=== PATIENT | male | born 1975 | race Hispanic/Latino ===

== ENCOUNTER 2017-08-11 02:11 | Emergency (ER) | payer OTHER ==
[2017-08-11 02:57] LABS: BASOPHILS % (AUTO) 0.2 % (0.0-5.0); EOSINOPHILS % (AUTO) 1.2 % (0.0-8.0); HEMATOCRIT 42.7 % (42-54); LYMPHOCYTES % (AUTO) 29.3 % (21.0-51.0); MEAN CORPUSCULAR HEMOGLOBIN 32.9 pg (27.0-33.0); MEAN CORPUSCULAR HGB CONC 34.7 g/dL (32.0-36.0); MEAN CORPUSCULAR VOLUME 94.5 fL (79-99); MONOCYTES % (AUTO) 3.4 % (3.0-13.0); NEUTROPHILS % (AUTO) 65.9 % (40.0-77.0); PLATELET COUNT (AUTO) 260 K/uL (130-400); RED BLOOD CELL COUNT(AUTO) 4.51 MIL/uL (4.50-6.20); RED CELL DISTRIBUTION WIDTH 13.4 % (11.0-15.5); WHITE BLOOD COUNT (AUTO) 6.2 K/uL (4.8-10.8)
[2017-08-11 03:12] LABS: CARBON DIOXIDE 24 mmol/L (21-32); CHLORIDE 100 mmol/L (101-111); CREATININE 0.7 mg/dL (0.5-1.5); GLOMERULAR FILTR. RATE CALC 131 mL/min (>60); GLUCOSE,RANDOM 123 mg/dL (70-105); POTASSIUM 3.8 mmol/L (3.5-5.1); SODIUM SERUM 138 mmol/L (136-145); UREA NITROGEN, BLOOD 9 mg/dL (7-18)
[2017-08-11 03:26] LABS: CREATINE KINASE MB < 0.5 ng/mL (0.5-3.6); CREATINE KINASE, TOTAL 81 U/L (21-232)
== END 2017-08-11 07:04 | disposition home or self-care (01) ==
LOC: EDH 02:11
DX: R07.89 Other chest pain (principal); E78.5 Hyperlipidemia, unspecified; Z72.0 Tobacco use
CPT/HCPCS: 36415; 80048; 82550; 82553; 84484; 85025; 93005

== ENCOUNTER 2017-12-07 09:59 | Inpatient (IN) | payer OTHER ==
[~2017-12-07] VITALS: Ht 175.3 cm; Wt 75.1 kg
[2017-12-07 10:22] LABS: BASOPHILS % (AUTO) 0.6 % (0.0-5.0); EOSINOPHILS % (AUTO) 3.5 % (0.0-8.0); HEMATOCRIT 41.9 % (42-54); LYMPHOCYTES % (AUTO) 31.7 % (21.0-51.0); MEAN CORPUSCULAR HEMOGLOBIN 33.1 pg (27.0-33.0); MEAN CORPUSCULAR HGB CONC 35.2 g/dL (32.0-36.0); MEAN CORPUSCULAR VOLUME 93.9 fL (79-99); MONOCYTES % (AUTO) 8.5 % (3.0-13.0); NEUTROPHILS % (AUTO) 55.7 % (40.0-77.0); PLATELET COUNT (AUTO) 269 K/uL (130-400); RED BLOOD CELL COUNT(AUTO) 4.46 MIL/uL (4.50-6.20); RED CELL DISTRIBUTION WIDTH 12.8 % (11.0-15.5); WHITE BLOOD COUNT (AUTO) 7.4 K/uL (4.8-10.8)
[2017-12-07 10:33] LABS: CREATININE 0.9 mg/dL (0.5-1.5); POTASSIUM 4.2 mmol/L (3.5-5.1)
[2017-12-07 10:36] LABS: INR 0.94 (0.85-1.15); PARTIAL THROMBOPLASTIN TIME 29.2 SEC (26.3-35.5); PROTHROMBIN TIME 9.9 SEC (9.6-11.6)
[2017-12-07 10:41] LABS: BILIRUBIN,TOTAL 0.5 mg/dL (0.2-1.0); TOTAL PROTEIN, SERUM 7.8 g/dL (6.0-8.3)
[2017-12-07] MEDS ORDERED: NITROGLYCERIN 1GM/1 INCH PACKET TD ONE (10:43)
[2017-12-07] MEDS ORDERED: NITROGLYCERIN 0.4 MG SL TAB SL PRN (12:30)
[2017-12-07] MEDS ORDERED: GUAIFENESIN-DM 200/20 MG 10 ML PO PRN (12:30)
[2017-12-07] MEDS ORDERED: ACETAMINOPHEN 325 MG TAB PO PRN ×2 (12:30)
[2017-12-07] MEDS ORDERED: ONDANSETRON HCL 4 MG/2 ML VIAL IV PRN (12:30)
[2017-12-07] MEDS ORDERED: MORPHINE SULFATE 2 MG/ML 1ML SYG IV PRN (12:30)
[2017-12-07] MEDS ORDERED: HYDRALAZINE HCL 20 MG/ML VIAL IV PRN (12:30)
[2017-12-07] MEDS ORDERED: LACTULOSE 20 GM/30 ML UDCUP PO PRN (12:30)
[2017-12-07] MEDS ORDERED: MORPHINE SULFATE 4 MG/1ML SYG IV PRN (12:30)
[2017-12-07] MEDS: NITROGLYCERIN 1GM/1 INCH PACKET TD SCH ×2 (12:30→21:30)
[2017-12-07 14:18] LABS: APPEARANCE,URINE Clear (CLEAR); BILIRUBIN,URINE Negative (NEGATIVE); COLOR,URINE Yellow (YELLOW); GLUCOSE, URINE (UA) Negative (NEGATIVE); KETONES,URINE Negative (NEGATIVE); LEUKOCYTE ESTERASE ,URINE Negative (NEGATIVE); NITRATE,URINE Negative (NEGATIVE); OCCULT BLOOD,URINE Negative (NEGATIVE); PH,URINE 6.5 (5.0-8.0); PROTEIN,URINE Negative (NEGATIVE); UROBILINOGEN,URINE 0.2 mg/dL (0.2-1.0)
[2017-12-07 14:26] LABS: AMPHET/METH SCREEN,URINE NEGATIVE (NEGATIVE); BARBITURATE SCREEN, URINE NEGATIVE (NEGATIVE); BENZODIAZEPINES SCREEN,URINE NEGATIVE (NEGATIVE); CANNABINOID SCREEN,URINE NEGATIVE (NEGATIVE); COCAINE SCREEN,URINE NEGATIVE (NEGATIVE); OPIATE SCREEN,URINE NEGATIVE (NEGATIVE); PHENCYCLIDINE SCREEN,URINE NEGATIVE (NEGATIVE)
[2017-12-07] MEDS ORDERED: HEPARIN 25000 UNITS/250 ML D5W 250 ML IV PRN (14:52)
[2017-12-07] MEDS ORDERED: HEPARIN 25000 UNITS/250 ML D5W 250 ML IV ONE (15:53)
[2017-12-07 18:24] LABS: CREATINE KINASE MB 1.2 ng/mL (0.5-3.6); CREATINE KINASE, TOTAL 307 U/L (21-232); MYOGLOBIN 34 ng/mL (10-92); TROPONIN I < 0.04 ng/mL (0.00-0.06)
[2017-12-07 18:42] VITALS: BP 109/61
[2017-12-07 20:13] VITALS: BP 109/61
[2017-12-07] MEDS: FAMOTIDINE 20MG TAB 20 MG TAB PO SCH (21:28)
[2017-12-07] MEDS: METOPROLOL TARTRATE 25 MG TAB PO SCH (21:28)
[2017-12-07 23:36] VITALS: BP 104/58
[2017-12-08] VITALS (12 sets, daily range): BP systolic 94–138; BP diastolic 53–110
[2017-12-08] MEDS ORDERED: HEPARIN SODIUM 5000UNIT/ML 1ML VIAL ONE ×2 (00:22→05:50)
[2017-12-08] MEDS: NITROGLYCERIN 1GM/1 INCH PACKET TD SCH ×3 (04:30→16:38)
[2017-12-08 04:52] LABS: CREATININE 0.9 mg/dL (0.5-1.5); POTASSIUM 4.1 mmol/L (3.5-5.1)
[2017-12-08] MEDS: METOPROLOL TARTRATE 25 MG TAB PO SCH ×2 (09:00→20:49)
[2017-12-08] MEDS: FAMOTIDINE 20MG TAB 20 MG TAB PO SCH ×2 (09:00→20:49)
[2017-12-08] MEDS ORDERED: ASPIRIN 325 MG TABLET PO SCH (09:00)
[2017-12-08] MEDS ORDERED: ENOXAPARIN SODIUM 40 MG/0.4 ML SYRINGE SQ SCH (09:00)
[2017-12-08] MEDS ORDERED: LIDOCAINE HCL 1% 20 ML VIAL ONE (12:22)
[2017-12-08] MEDS ORDERED: IOPAMIDOL-370 100 ML VIAL IV ONE ×2 (12:23→13:32)
[2017-12-08] MEDS ORDERED: HEPARIN SODIUM 1000UNIT/ML 10ML VIAL ONE (12:23)
[2017-12-08] MEDS ORDERED: ISOVUE-370 50ML VIAL IV ONE (12:23)
[2017-12-08] MEDS ORDERED: ASPIRIN 325MG EC TAB 325 MG TABLET.DR PO ONE (13:13)
[2017-12-08] MEDS ORDERED: CLOPIDOGREL BISULFATE 300 MG TAB ONE (13:13)
[2017-12-08] MEDS ORDERED: ONDANSETRON HCL 4 MG/2 ML VIAL ONE (13:31)
[2017-12-08] MEDS ORDERED: ATROPINE SULFATE 0.1 MG/ML 10 ML SYG IVP ONE (13:36)
[2017-12-08] MEDS ORDERED: DOPAMINE HCL 400 MG/D5%-WATER 0 ML IV ONE (13:36)
[2017-12-08] MEDS ORDERED: NITROGLYCERIN 5 MG/ML 10 ML VIAL IV ONE (13:42)
[2017-12-08] MEDS ORDERED: ACETAMINOPHEN-CODEINE 300/30MG TAB PO PRN (14:30)
[2017-12-08] MEDS ORDERED: MORPHINE SULFATE 2 MG/ML 1ML SYG IVP SCH (14:30)
[2017-12-08] MEDS ORDERED: ONDANSETRON HCL MDV 20ML 2 MG/ML VIAL IVP SCH (14:30)
[2017-12-08] MEDS ORDERED: TEMAZEPAM 30 MG CAP PO PRN (14:30)
[2017-12-08] MEDS ORDERED: ONDANSETRON HCL MDV 20ML 2 MG/ML VIAL IVP PRN (14:30)
[2017-12-08] MEDS: ACETAMINOPHEN-CODEINE 300/30MG TAB PO PRN ×2 (15:03→20:49)
[2017-12-08 16:15] LABS: INR 0.99 (0.85-1.15); PARTIAL THROMBOPLASTIN TIME 65.1 SEC (26.3-35.5); PROTHROMBIN TIME 10.4 SEC (9.6-11.6)
[2017-12-08 17:26] LABS: INR 0.97 (0.85-1.15); PARTIAL THROMBOPLASTIN TIME 37.8 SEC (26.3-35.5); PROTHROMBIN TIME 10.2 SEC (9.6-11.6)
[2017-12-08] MEDS ORDERED: MORPHINE SULFATE 4 MG/1ML SYG ONE (17:33)
[2017-12-08] MEDS ORDERED: ATORVASTATIN CALCIUM 20 MG TABLET PO SCH (21:00)
[2017-12-09] MEDS: NITROGLYCERIN 1GM/1 INCH PACKET TD SCH ×3 (00:20→16:59)
[2017-12-09 04:02] VITALS: BP 96/64
[2017-12-09 05:24] LABS: HEMATOCRIT 43.7 % (42-54); MEAN CORPUSCULAR HEMOGLOBIN 33.3 pg (27.0-33.0); MEAN CORPUSCULAR HGB CONC 35.3 g/dL (32.0-36.0); MEAN CORPUSCULAR VOLUME 94.3 fL (79-99); PLATELET COUNT (AUTO) 282 K/uL (130-400); RED BLOOD CELL COUNT(AUTO) 4.64 MIL/uL (4.50-6.20); RED CELL DISTRIBUTION WIDTH 12.5 % (11.0-15.5); WHITE BLOOD COUNT (AUTO) 9.1 K/uL (4.8-10.8)
[2017-12-09 05:36] LABS: CREATININE 0.9 mg/dL (0.5-1.5); POTASSIUM 4.3 mmol/L (3.5-5.1)
[2017-12-09] MEDS: FAMOTIDINE 20MG TAB 20 MG TAB PO SCH (07:43)
[2017-12-09] MEDS: METOPROLOL TARTRATE 25 MG TAB PO SCH (07:43)
[2017-12-09] MEDS: ACETAMINOPHEN-CODEINE 300/30MG TAB PO PRN ×2 (07:46→16:14)
[2017-12-09 07:51] VITALS: BP 94/64
[2017-12-09] MEDS ORDERED: ASPIRIN 81MG TAB.CHEW PO SCH (09:00)
[2017-12-09] MEDS ORDERED: PANTOPRAZOLE SODIUM 40 MG TABLET.DR PO SCH (09:00)
[2017-12-09] MEDS ORDERED: CLOPIDOGREL BISULFATE 75 MG TAB PO SCH (09:00)
[2017-12-09] MEDS ORDERED: METO25 PO (09:07)
[2017-12-09] MEDS ORDERED: ATOR20TA65 PO (09:07)
[2017-12-09] MEDS ORDERED: CLOP75TA14 PO ×2 (09:07→12:26)
[2017-12-09] MEDS ORDERED: ASPI-1005 PO (09:07)
[2017-12-09] MEDS ORDERED: Nitroglycerin 0.4MG Sl Tab SL (09:13)
[2017-12-09 11:11] VITALS: BP 94/57
[2017-12-09] MEDS ORDERED: ATOR10 PO (12:26)
[2017-12-09] MEDS ORDERED: METO25TA6 PO (12:26)
[2017-12-09] MEDS ORDERED: AEC81 PO (12:26)
[2017-12-09 16:05] VITALS: BP 118/55
== END 2017-12-09 18:40 | disposition home or self-care (01) | DRG 247 ==
LOC: EDH 09:59 → OBSVTOIN 10:55 → EEVIPCON 10:55 → EDHIP 10:55 → 2AH 18:18
PROVIDERS: ADMIT Internal Medicine; ATTEND Internal Medicine
PROC: 4A023N7 Measurement of Cardiac Sampling and Pressure, Left Heart, Percutaneous Approach (ICD-10-PCS; principal; 2017-12-08)
PROC: 027236Z Dilation of Coronary Artery, Three Arteries with Three Drug-eluting Intraluminal Devices, Percutaneous Approach (ICD-10-PCS; 2017-12-08)
PROC: B2111ZZ Fluoroscopy of Multiple Coronary Arteries using Low Osmolar Contrast (ICD-10-PCS; 2017-12-08)
PROC: B2131ZZ Fluoroscopy of Multiple Coronary Artery Bypass Grafts using Low Osmolar Contrast (ICD-10-PCS; 2017-12-08)
DX: I25.810 Atherosclerosis of coronary artery bypass graft(s) without angina pectoris (principal); I25.110 Atherosclerotic heart disease of native coronary artery with unstable angina pectoris; E78.5 Hyperlipidemia, unspecified; I10 Essential (primary) hypertension; I25.5 Ischemic cardiomyopathy; I25.2 Old myocardial infarction; Z91.19 Patient's noncompliance with other medical treatment and regimen; Z95.5 Presence of coronary angioplasty implant and graft
CPT/HCPCS: 36415; 71045; 80048; 80053; 80061; 80305; 81003; 82550; 82553; 83874; 84484; 85025; 85027; 85347; 85610; 85730; 93005; 93459; C1725; C1769; C1887; C1894; C9600; C9601; J0461; J1265; J1644; J2270; J2405; J3490; Q9967

== ENCOUNTER 2021-02-04 14:35 | Emergency (ER) | payer OTHER ==
[~2021-02-04] VITALS: Ht 175.3 cm; Wt 79.4 kg
[~2021-02-04 14:35] MED LIST: AEC81 PO; ASPI-1005 PO; ATOR10 PO; ATOR20TA65 PO; CLOP75TA14 PO; METO25 PO; METO25TA6 PO; Nitroglycerin 0.4MG Sl Tab SL
[2021-02-04 14:36] VITALS: BP 126/80
== END 2021-02-04 16:04 ==
LOC: EDH 14:35
DX: M79.642 Pain in left hand (principal); Z79.82 Long term (current) use of aspirin; Z95.1 Presence of aortocoronary bypass graft; Z95.5 Presence of coronary angioplasty implant and graft; Z79.899 Other long term (current) drug therapy
CPT/HCPCS: 73130

== ENCOUNTER 2021-07-11 17:12 | Emergency (ER) | payer OTHER ==
[~2021-07-11] VITALS: Ht 175.3 cm; Wt 83.9 kg
[2021-07-11 17:37] LABS: BASOPHILS % (AUTO) 0.4 % (0.0-5.0); EOSINOPHILS % (AUTO) 4.4 % (0.0-8.0); HEMATOCRIT 41.7 % (42-54); LYMPHOCYTES % (AUTO) 33.3 % (21.0-51.0); MEAN CORPUSCULAR HEMOGLOBIN 30.1 pg (27.0-33.0); MEAN CORPUSCULAR HGB CONC 33.6 g/dL (32.0-36.0); MEAN CORPUSCULAR VOLUME 89.7 fL (79-99); MONOCYTES % (AUTO) 10.6 % (3.0-13.0); NEUTROPHILS % (AUTO) 51.1 % (40.0-77.0); PLATELET COUNT (AUTO) 270 K/uL (130-400); RED BLOOD CELL COUNT(AUTO) 4.65 MIL/uL (4.50-6.20); RED CELL DISTRIBUTION WIDTH 13.2 % (11.0-15.5); WHITE BLOOD COUNT (AUTO) 5.6 K/uL (4.8-10.8)
[2021-07-11 17:46] LABS: APPEARANCE,URINE Clear (CLEAR); BILIRUBIN,URINE Negative (NEGATIVE); COLOR,URINE Yellow (YELLOW); GLUCOSE, URINE (UA) Negative (NEGATIVE); KETONES,URINE Negative (NEGATIVE); LEUKOCYTE ESTERASE ,URINE Negative (NEGATIVE); NITRATE,URINE Negative (NEGATIVE); OCCULT BLOOD,URINE Negative (NEGATIVE); PH,URINE 5.5 (5.0-8.0); PROTEIN,URINE Negative (NEGATIVE); UROBILINOGEN,URINE 0.2 mg/dL (0.2-1.0)
[2021-07-11 17:48] LABS: CREATININE 0.9 mg/dL (0.5-1.5); POTASSIUM 3.9 mmol/L (3.5-5.1)
[2021-07-11 17:50] LABS: INR 0.96 (0.85-1.15); PROTHROMBIN TIME 10.5 SEC (9.6-11.6)
[2021-07-11 17:51] LABS: PARTIAL THROMBOPLASTIN TIME 30.8 SEC (26.3-35.5)
[2021-07-11 17:52] LABS: ALBUMIN 4.1 g/dL (3.5-5.0); BILIRUBIN,TOTAL 0.7 mg/dL (0.2-1.0); TOTAL PROTEIN, SERUM 7.8 g/dL (6.0-8.3)
[2021-07-11 18:11] LABS: B-TYPE NATRIURETIC PEPTIDE 18 pg/mL (0-100)
[2021-07-11] MEDS ORDERED: ORPHENADRINE CITRATE 30 MG/ML ML IV ONE (21:00)
[2021-07-11] MEDS ORDERED: KETOROLAC 30MG VIAL (30MG/ML) IV ONE (21:00)
[2021-07-11 21:08] VITALS: BP 121/87
== END 2021-07-11 21:18 | disposition home or self-care (01) ==
LOC: EDH 17:12
DX: R07.89 Other chest pain (principal); M79.10 Myalgia, unspecified site; R20.0 Anesthesia of skin; I10 Essential (primary) hypertension; I25.10 Atherosclerotic heart disease of native coronary artery without angina pectoris; Z79.82 Long term (current) use of aspirin; Z79.899 Other long term (current) drug therapy; Z95.1 Presence of aortocoronary bypass graft; Z95.5 Presence of coronary angioplasty implant and graft
CPT/HCPCS: 36415; 71045; 80053; 81003; 82550; 83880; 84484; 85025; 85610; 85730; 93005; 96374; 96375; 99285; J1885; J2360

== ENCOUNTER 2021-08-25 14:02 | Emergency (ER) | payer OTHER ==
[~2021-08-25] VITALS: Ht 175.3 cm; Wt 88.5 kg
[2021-08-25 14:55] LABS: BASOPHILS % (AUTO) 0.3 % (0.0-5.0); EOSINOPHILS % (AUTO) 2.8 % (0.0-8.0); HEMATOCRIT 42.3 % (42-54); LYMPHOCYTES % (AUTO) 28.3 % (21.0-51.0); MEAN CORPUSCULAR HEMOGLOBIN 30.4 pg (27.0-33.0); MEAN CORPUSCULAR HGB CONC 33.8 g/dL (32.0-36.0); MEAN CORPUSCULAR VOLUME 89.8 fL (79-99); MONOCYTES % (AUTO) 7.2 % (3.0-13.0); NEUTROPHILS % (AUTO) 61.1 % (40.0-77.0); PLATELET COUNT (AUTO) 253 K/uL (130-400); RED BLOOD CELL COUNT(AUTO) 4.71 MIL/uL (4.50-6.20); RED CELL DISTRIBUTION WIDTH 13.2 % (11.0-15.5); WHITE BLOOD COUNT (AUTO) 6.1 K/uL (4.8-10.8)
[2021-08-25 15:04] LABS: APPEARANCE,URINE Clear (CLEAR); BILIRUBIN,URINE Negative (NEGATIVE); COLOR,URINE Yellow (YELLOW); GLUCOSE, URINE (UA) Negative (NEGATIVE); KETONES,URINE Negative (NEGATIVE); LEUKOCYTE ESTERASE ,URINE Trace (NEGATIVE); NITRATE,URINE Negative (NEGATIVE); OCCULT BLOOD,URINE Negative (NEGATIVE); PROTEIN,URINE Negative (NEGATIVE)
[2021-08-25 15:11] LABS: BILIRUBIN,TOTAL 0.8 mg/dL (0.2-1.0); TOTAL PROTEIN, SERUM 7.5 g/dL (6.0-8.3)
[2021-08-25 15:14] LABS: PROTHROMBIN TIME 10.9 SEC (9.6-11.6)
[2021-08-25 15:15] LABS: BACTERIA,URINE None Seen /HPF (None Seen); RBC,URINE 0-1 /HPF (0-1); SQUAMOUS EPITHELIAL CELL,UR 0-2 /HPF (0-2); WBC,URINE 0-1 /HPF (0-1)
[2021-08-25 15:15] LABS: PARTIAL THROMBOPLASTIN TIME 31.4 SEC (26.3-35.5)
[2021-08-25 15:19] LABS: B-TYPE NATRIURETIC PEPTIDE 27 pg/mL (0-100)
[2021-08-25 17:11] VITALS: BP 111/69
== END 2021-08-25 17:40 | disposition home or self-care (01) ==
LOC: EDH 14:02 → EEVIPCON 14:02 → EDH 17:40
DX: R07.89 Other chest pain (principal); I10 Essential (primary) hypertension; I25.10 Atherosclerotic heart disease of native coronary artery without angina pectoris; F17.200 Nicotine dependence, unspecified, uncomplicated; Z79.82 Long term (current) use of aspirin; Z79.899 Other long term (current) drug therapy; Z95.1 Presence of aortocoronary bypass graft; Z95.5 Presence of coronary angioplasty implant and graft
CPT/HCPCS: 36415; 71045; 80053; 81001; 82550; 83880; 84484; 85025; 85610; 85730; 93005

== ENCOUNTER 2025-04-30 20:27 | Inpatient (IN) | payer OTHER ==
[~2025-04-30] VITALS: Ht 175.3 cm; Wt 78.6 kg
[~2025-04-30 20:27] MED LIST changes: +CLOP-31 PO; -CLOP75TA14 PO
--- NOTE | 2025-04-30 21:10 | EKG ---
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
[2025-04-30 21:37] LABS: IMMATURE GRANULOCYTE ABSOLUTE 0.02 K/uL (0-1); NUCLEATED RED BLOOD CELLS 0.0 % (0.0-0.19); PLATELET COUNT (AUTO) 291 K/uL (130-400); RED BLOOD CELL COUNT(AUTO) 4.62 MIL/uL (4.50-6.20); RED CELL DISTRIBUTION WIDTH 13.9 % (11.0-15.5); WHITE BLOOD COUNT (AUTO) 8.0 K/uL (4.8-10.8)
[2025-04-30 21:51] LABS: CREATINE KINASE, TOTAL 88.0 U/L (21-232); CREATININE 0.9 mg/dL (0.5-1.3); GLOMERULAR FILTR. RATE CALC 103.0 mL/min (>90); GLUCOSE,RANDOM 101.0 mg/dL (70-105); SODIUM SERUM 137.0 mmol/L (136-145); UREA NITROGEN, BLOOD 15.0 mg/dL (7-18)
--- NOTE | 2025-04-30 21:59 | HMCIMG ---
EXAM: XR Chest, 1 View. CLINICAL HISTORY: Shortness of breath. COMPARISON: 12/07/2017. FINDINGS: LUNGS: No acute cardiopulmonary process. The lungs are clear. PLEURAL SPACES: No pleural effusion or pneumothorax. HEART: The heart size is normal. BONES: No acute osseous abnormality. IMPRESSION: 1. No acute cardiopulmonary process. Similar to the prior XR Chest dated 12/07/2017. /[place]
[2025-04-30] MEDS: ASPIRIN 325MG TAB PO ONE (22:11)
--- NOTE | 2025-04-30 22:14 | ERN ---
ED Note History of Present Illness Stated Complaint: C/O TIGHTNESS TO CHEST W/SOB Chief Complaint: Shortness of Breath Time Seen by MD: 20:31 Dictation: This is a 50-year-old male skilled nursing inmate was brought by the correctional facility officers for evaluation of shortness of breath and chest tightness. He stated that this has been going on for the past few days and it was worse today and the residential staff tried to do an EKG patient informed them that in the past even with a normal EKG he ended up having multiple blockages. He denied any diaphoresis nausea vomitings. No reproducibility. No trauma. Temperature 98.2 pulse 26 respirations 20 blood pressure 130/76 with a pulse oximetry 99% on room air Patient has coronary artery disease for over 20 years and he underwent a c oronary artery bypass surgery in his early 30s. But 5 or 7 years ago he had left heart catheterization and multiple stents placed. He is also hypertensive. Please note that his cardiac stent placements and repeat left heart catheterization were all at [facility] and I do not have any of those records for review at this time Allergies: Coded Allergies: No Known Allergies (Unverified Allergy, Unknown, 06/03/17) Home Meds Active Scripts [Nitroglycerin 0.4MG Sl Tab] 0.4 MG TAB.SUBL No Conflict Check, 0.4 MG SL q5min prn PRN for CHEST PAIN, #15 0 Refills Prov:TONNY DAVID MD 12/09/17 Metoprolol Tartrate (Lopressor) 25 Mg Tab, 25 MG PO BID, #60 TAB Prov:TONNY DAVID MD 12/09/17 Clopidogrel Bisulfate (Plavix) 75 Mg Tablet, 75 MG PO DAILY, #60 TAB Prov:TONNY DAVID MD 12/09/17 Atorvastatin Calcium (Atorvastatin Calcium) 20 Mg Tablet, 20 MG PO HS, #60 TAB Prov:TONNY DAVID MD 12/09/17 Aspirin (ASPIRIN 81MG CHEW TAB) 81 Mg Tab.chew, 81 MG PO DAILY, #60 TAB.CHEW Prov:TONNY DAVID MD 12/09/17 Reported Medications Atorvastatin Calcium (LIPITOR) 20 Mg Tab, 20 MG PO HS, TAB 12/09/17 Clopidogrel Bisulfate (Plavix) 75 Mg Tablet, 75 MG PO DAILY, TAB 12/09/17 Metoprolol Tartrate (Metoprolol Tartrate) 25 Mg Tablet, 25 MG PO DAILY, TAB 12/09/17 Aspirin (ASPIRIN 81 MG ECTAB) 81 Mg Ectab, 81 MG PO DAILY, TAB.EC 12/09/17 Past Medical History Past Medical History: Hypertension Additional Past Medical Hx: DOES NOT KNOW IF HE HAS HTN, DOES NOT TAKE RX MEDS Surgical History: Other Surgical History Other: TRIPLE BYPASS (2010); CARDIAC STENTS Social History: Smokers, Drugs RN Note Reviewed/Agreed w/PFSH: Yes Review of System Dictation Constitutional: Negative for fever,chills, and weight loss Eyes: Negative for injury, pain,redness, and discharge ENT: Negative for injury,pain or swelling Cardiovascular: Positive for chest pain, palpitations, and edema Respiratory: Positive for shortness of breath, cough, and wheezing, Abdomen/GI: Negative for abdominal pain, nausea, vomiting, diarrhea, and constipation Back: Negative for injury and pain : Negative for injury, bleeding and discharge MS/Extremity: Negative for injury and deformity Skin: Negative for rash, and discoloration Neuro: Negative for headache, weakness, numbness, tingling, and seizure Psych: Negative for suicide ideation, homicidal ideation, and hallucinations Initial Vital Sign VS Vital Signs Date Time Temp Pulse Resp B/P (MAP) Pulse Ox O2 Delivery O2 Flow Rate FiO2 04/30/25 20:29 98.2 76 20 130/76 99 Room Air Physical Exam Dictation General: awake, alert, NAD Head/Face: Normocephalic, atraumatic Eyes: PERRL, EOMI, vision at baseline ENT: oral cavity clear, TMs clear, no signs of infection Neck: Trachea midline, supple, no nuchal rigidity Cardiovascular: RRR, normal S1/S2, No MRGs, no JVD Respiratory: CTAB, no respiratory distress, No rales or wheezes Abdomen: Soft, non-tender, non-distended, normal bowel sounds, no guarding or rebound. Skin: Warm, dry, normal turgor, no rash MS/Extremity: Pulses equal, no cyanosis, neurovascular intact, FROM Neuro: COAx4, GCS 15, strength 5/5, CN 2-12 intact, normal cerebellar exam, normal gait, Psych: Normal behavior, mood, and affect normal Extremities-trace edema without any palpable cords, Homans sign is negative Results (Laboratory/Radiology) Laboratory/Radiology Laboratory Tests Test 04/30/25 21:25 White Blood Count 8.0 K/uL (4.8-10.8) Red Blood Count 4.62 MIL/uL (4.50-6.20) Hemoglobin 14.0 g/dL (14.0-18.0) Hematocrit 42.8 % (42-54) Mean Corpuscular Volume 92.6 fL (79-99) Mean Corpuscular Hemoglobin 30.3 pg (27.0-33.0) Mean Corpuscular Hemoglobin Concent 32.7 g/dL (32.0-36.0) Red Cell Distribution Width 13.9 % (11.0-15.5) Platelet Count 291 K/uL (130-400) Mean Platelet Volume 8.9 fL (7.5-10.5) Immature Granulocyte % (Auto) 0.2 % (0-1) Neutrophils (%) (Auto) 58.3 % (40.0-77.0) Lymphocytes (%) (Auto) 32.3 % (21.0-51.0) Monocytes (%) (Auto) 6.9 % (3.0-13.0) Eosinophils (%) (Auto) 1.9 % (0.0-8.0) Basophils (%) (Auto) 0.4 % (0.0-5.0) Neutrophils # (Auto) 4.7 K/uL (1.8-7.7) Lymphocytes # (Auto) 2.6 K/uL (1.0-4.8) Monocytes # (Auto) 0.6 K/uL (0.1-1.0) Eosinophils # (Auto) 0.15 K/uL (0.00-0.70) Basophils # (Auto) 0.03 K/uL (0.00-0.20) Absolute Immature Granulocyte (auto 0.02 K/uL (0-1) Nucleated Red Blood Cells 0.0 % (0.0-0.19) Sodium Level 137 mmol/L (136-145) Potassium Level 4.4 mmol/L (3.5-5.1) Chloride Level 98 mmol/L (101-111) L Carbon Dioxide Level 31 mmol/L (21-32) Blood Urea Nitrogen 15 mg/dL (7-18) Creatinine 0.9 mg/dL (0.5-1.3) Glomerular Filtration Rate Calc 103 mL/min (>90) Random Glucose 101 mg/dL (70-105) Total Calcium 9.3 mg/dL (8.5-10.1) Total Creatine Kinase 88 U/L (21-232) # Troponin I High Sensitivity 6.3 ng/L (4-75) B-Type Natriuretic Peptide 67 pg/mL (0-100) Labs Reviewed?: Yes EKG Comment: Twelve lead EKG done on 04/30/2025 at 8:27 p.m. hours showed a heart rate of 77, CO interval 155, QRS 110, QT/QTC 368/418 Impression normal sinus rhythm with a evidence of very small Q's in the inferior leads and ST depressions in the inferior leads. EKG rhythm strip shows a normal sinus rhythm with nonspecific ST-T changes. No acute ST-T elevations noted. Interpreted by ER MD Dr. Helms X-RAY Comment: REASON: Dyspnea/SOB ORDERING PHYSICIAN: ANIA HELMS MD PROCEDURE: CXR1VW - CHEST 1VW EXAM: XR Chest, 1 View. CLINICAL HISTORY: Shortness of breath. COMPARISON: 12/07/2017. FINDINGS: LUNGS: No acute cardiopulmonary process. The lungs are clear. PLEURAL SPACES: No pleural effusion or pneumothorax. HEART: The heart size is normal. BONES: No acute osseous abnormality. IMPRESSION: 1. No acute cardiopulmonary process. Similar to the prior XR Chest dated 12/07/2017. /[place] DICTATED BY: AYDEN MIDDLETON MD DATE: 04/30/252256 ELECTRONICALLY SIGNED BY: AYDEN MIDDLETON MD DATE: 04/30/252256 ED Course ED Course Orders Procedure Category Date Status Time 12 Lead Ekg Tracing- EKG 04/30/25 Complete Technical 20:34 Cbc With Differential LAB 04/30/25 Complete 20:41 Cardiac Panel LAB 04/30/25 Complete 20:41 Chest 1vw RAD 04/30/25 Resulted 20:41 Aspirin 325mg Tab PHA 04/30/25 Complete (Aspirin 325mg Tab) 21:00 Basic Metabolic Panel LAB 04/30/25 Complete 20:41 B-Type Natriuretic LAB 04/30/25 Complete Peptide 20:41 Nitroglycerin 0.4mg PHA 04/30/25 Complete Sl Tab (Nitrostat) 23:30 Edm Admit Bridge Order ADM 05/01/25 Transmitted 00:05 Admit Orders ADM 05/01/25 Transmitted 00:05 Heart Healthy Diet DIET 05/01/25 Transmitted Breakfast Basic Metabolic Panel LAB 05/01/25 Logged 04:00 Cbc With Differential LAB 05/01/25 Logged 04:00 Magnesium LAB 05/01/25 Logged 04:00 Phosphorus LAB 05/01/25 Logged 04:00 Troponin I High LAB 05/01/25 Logged Sensitivity 04:00 Troponin I High LAB 05/01/25 Logged Sensitivity 10:00 Troponin I High LAB 05/01/25 Logged Sensitivity 16:00 Urinalysis Profile LAB 05/01/25 Logged 00:05 Activity: Ad Peggy CPOE 05/01/25 Transmitted 00:05 Apply Knee High Teds CPOE 05/01/25 Transmitted 00:05 Apply Scds CPOE 05/01/25 Transmitted 00:05 Condition: CPOE 05/01/25 Transmitted 00:05 Npo Except For Meds CPOE 05/01/25 Transmitted 00:05 Nurse To Enter Home CPOE 05/01/25 Transmitted Medication 00:05 Oxygen By Nc/Pulse Ox CPOE 05/01/25 Transmitted 00:05 Telemetry Monitoring CPOE 05/01/25 Transmitted 00:05 Vital Signs(Adult CPOE 05/01/25 Transmitted Hospitalist) 00:05 Acetaminophen 325 Tab PHA 05/01/25 In Process (Tylenol 325mg Tab 00:30 Atorvastatin 40mg PHA 05/01/25 In Process (Lipitor 40mg) 21:00 Enoxaparin Sodium 40 PHA 05/01/25 In Process Mg/0.4 Ml (Lovenox) 09:00 Famotidine 20mg Tab PHA 05/01/25 In Process (Pepcid 20mg Tab) 09:00 Hydralazine 20mg Inj PHA 05/01/25 In Process (Apresoline 20mg In 00:30 Lactulose 20 Gm/30 Ml PHA 05/01/25 In Process Udcup (Constulose 00:30 Morphine 4mg Syg PHA 05/01/25 In Process (Morphine 4mg Syg) 00:30 Nitroglycerin 0.4mg PHA 05/01/25 In Process Sl Tab (Nitrostat) 00:30 Ondansetron 4mg Inj PHA 05/01/25 In Process (Zofran 4mg Inj) 00:30 Aspirin 81mg Ec Tab PHA 05/01/25 In Process (Aspirin 81mg Ec Tab 09:00 Current Medications Medications (Trade) Dose Ordered Sig/Jonh Route PRN Reason Start Time Stop Time Status Last Admin Dose Admin Aspirin (Aspirin 325mg Tab) 325 mg ONCE ONCE PO 04/30/25 21:00 04/30/25 21:01 DC 04/30/25 22:11 Nitroglycerin (Nitrostat) 0.4 mg AD PRN SL CHEST PAIN 04/30/25 23:30 05/01/25 00:15 DC Vital Signs Date Time Temp Pulse Resp B/P (MAP) Pulse Ox O2 Delivery O2 Flow Rate FiO2 04/30/25 20:29 98.2 76 20 130/76 99 Room Air We will perform diagnostic labs, advanced imaging and administer medications according to the patient's complaint. Once the results are available, will review and personally interpreted the labs to rule out any acute life- threatening emergency the trach require immediate intervention and treatment. I will then re-evaluate the patient after treatment and diagnostic exams have return to determine whether the patient requires any further testing, can safely be discharged home or need further admission to hospital for additional treatment and evaluation. Patient was accepted by [facility], mid-level provider for hospitalist group for admission and further management HEART Score Response (Comments) Value History: High suspicion (+2) 2 EKG: Repolarization changes 1 Age: 45-65yrs (+1) 1 Risk Factors: 1-2 risk factors (+1) 1 Initial Troponin: Normal limit (0) 0 HEART Score Risk: Mod Risk for MACE (4-6) Total 5 Medical Decision Making MDM Differential diagnosis: Unstable angina, esophagitis, hiatal hernia, gastritis, chest wall pain This is a 50-year-old male skilled nursing inmate was brought by the correctional facility officers for evaluation of shortness of breath and chest tightness. He stated that this has been going on for the past few days and it was worse today and the residential staff tried to do an EKG patient informed them that in the past even with a normal EKG he ended up having multiple blockages. He denied any diaphoresis nausea vomitings. No reproducibility. No trauma. Temperature 98.2 pulse 26 respirations 20 blood pressure 130/76 with a pulse oximetry 99% on room air Patient has coronary artery disease for over 20 years and he underwent a coronary artery bypass surgery in his early 30s. But 5 or 7 years ago he had left heart catheterization and multiple stents placed. He is also hypertensive. Please note that his cardiac stent placements and repeat left heart cat heterization were all at [facility] and I do not have any of those records for review at this time 10:00 p.m. labs reviewed CBC is with a normal limits BNP 7 is also with a normal limits glucose is 101 brain natriuretic peptide is 67. Chest x-ray is unremarkable for any acute infiltrate or pulmonary edema. 11:13 p.m. troponins were 6 With severe coronary artery disease, I recommended admission to the hospital for further evaluation of his coronaries and he is agreeable Rationale: Tests considered and ordered secondary to shared decision making include: labs, ECG and radiology Previous outside records reviewed: Old ER visits. Risk of complication and/or morbidity or mortality of patient management: None Medications-Per medication reconciliation Need for hospitalization: Patient does meet criteria for hospitalization. Need for emergency major/minor surgery: No There are no social concerns with this patient. Prescription drug management Prescriptions will include symptomatic care Patient's prior external medical records from other ER visits were reviewed by me as indicated. Prior testing and results from previous visits were reviewed. Prior tests were taken into account with medical decision making and resource utilization, independent historian/historians were used to obtain complete medical history. I independently interpreted the test that were performed, results were reviewed by me and considered findings on radiology if ordered. Medical management and examination interpretation discussions were had by me with other qualified healthcare professionals as indicated for the patient's care. Problem List Problem List: (1) Acute chest pain (2) Coronary artery disease (3) H/O coronary artery bypass surgery DX & DISP Disposition: Inpatient Decision to Admit Time: 00:07 Departure Impression: Primary Impression: Acute chest pain Additional Impressions: Coronary artery disease, H/O coronary artery bypass surgery Condition: Stable Additional Instructions: Patient was informed of all the diagnostic labs and procedures conducted in the emergency room today and demonstrated understanding of the results. I personally reviewed and interpreted all the diagnostic exams performed in the ER today. The patient will be admitted to the hospital for further treatment and evaluation. Disposition-admit to facility Condition-stable/guarded Course-uncertain at this time Pain status-decreased Assessment-exam unchanged Admission Certification- I certify that the patients status is appropriate and is based on my best clinical judgment and the patient's condition as documented in the medical records Referrals: SELF,REFERRAL (PCP) ANIA HELMS MD Apr 30, 2025 22:14
[2025-04-30] MEDS ORDERED: NITROGLYCERIN 0.4 MG SL TAB SL PRN (23:30)
--- NOTE | 2025-05-01 00:11 | HP ---
History of Present Illness Reason for Visit: sob History of Present Illness Mr. Herron is a 50-year-old male that was seen and examined today on 05/01/2025. Patient came to the emergency department with a chief complaint of shortness of breaths. Onset was 04/30/2025 noon. Location is to lungs. Duration is on and off. Character is described as, "like I do not get enough air. "There was no alleviating factors. Symptoms are aggravated with physical activity. Patient reports associated chest pain like tightness across both sides of his chest. Today in the emergency department CBC unremarkable, chemistry unremarkable, chest x-ray unremarkable, troponin unremarkable, no urinalysis has been collecte d or sent to lab. Emergency room physician recommended that patient be admitted with a diagnosis of chest pain. Past Medical History Patient History: Alzheimer's disease MOTHER Carcinomas SISTER (BREAST) Completed stroke MOTHER, Onset:Unknown FATHER, Onset:Unknown Diabetes mellitus MOTHER Hypertension MOTHER, Onset:Unknown ADDITIONAL PAST MEDICAL HISTORY: [Hypertension, hyperlipidemia, CAD, patient states he has a 90% occlusion in one coronary artery and he was supposed to follow up for further stenting several years ago and he never did] SOCIAL HISTORY: [Negative for smoking, alcohol use, drug patient is currently in the custody of [facility]. Patient is typically independent of all his ADLs. Patient denies difficulty pain is bills. Patient usually lives with his fatherNathen currently is incarcerated.] SURGICAL HISTORY: [] CABG, heart stents Review of Systems General: No Fever, No Chills, No Night Sweats, No Fatigue, No Malaise, No Appetite, No Other HEENT: No Head Aches, No Visual Changes, No Eye Pain, No Ear Pain, No Dysphasia, No Sinus Congestion, No Post Nasal Drip, No Sore Throat, No Other Pulmonary: No Dyspnea, No Cough, No Pleuritic Chest Pain, No Other Cardiovascular: Chest Pain; No: Palpitations, Orthopnea, Paroxysmal Noc. Dyspnea, Edema, Lt Headedness, Other Gastrointestinal: No: Nausea, Vomiting, Abdominal Pain, Diarrhea, Constipation, Melena, Hematochezia, Other Genitourinary: No Dysuria, No Frequency, No Incontinence, No Hematuria, No Retention, No Other Musculoskeletal: No: other, neck pain, shoulder pain, arm pain, back pain, hand pain, leg pain, foot pain Skin: No Urticaria, No Rash, No Other Neurological: No: Weakness, Numbness, Incoordination, Change in speech, Confu maria guadalupe, Seizures, Other Allergies: Coded Allergies: No Known Allergies (Unverified Allergy, Unknown, 06/03/17) Scheduled Aspirin (Aspirin 81 Mg Ectab), 81 MG PO DAILY, (Reported) Clopidogrel Bisulfate (Plavix), 75 MG PO DAILY, (Reported) Losartan Potassium (Losartan Potassium), 1 TAB PO DAILY, (Reported) Metoprolol Tartrate (Metoprolol Tartrate), 25 MG PO DAILY, (Reported) Ranolazine (Ranolazine ER), 1 TAB PO BID, (Reported) Rosuvastatin Calcium (Rosuvastatin Calcium), 1 TAB PO DAILY, (Reported) Valacyclovir HCl (Valacyclovir), 1 TAB PO TID, (Reported) Discontinued Medications Aspirin (Aspirin 81MG Chew Tab), 81 MG PO DAILY Atorvastatin Calcium (Atorvastatin Calcium), 20 MG PO HS Atorvastatin Calcium (Lipitor), 20 MG PO HS, (Reported) Clopidogrel Bisulfate (Plavix), 75 MG PO DAILY Metoprolol Tartrate (Lopressor), 25 MG PO BID [Nitroglycerin 0.4MG Sl Tab], 0.4 MG SL q5min prn PRN for CHEST PAIN Exam Vital Signs Vital Signs Date Time Temp Pulse Resp B/P (MAP) Pulse Ox O2 Delivery O2 Flow Rate FiO2 04/30/25 20:29 98.2 76 20 130/76 99 Room Air General Appearance: Alert, Oriented X3, Cooperative, No acute distress HEENT: Atraumatic, PERRLA, EOMI Respiratory: Clear to auscultation, Normal air movement, NL respiratory effort Cardiovascular: Regular rate, Regular rhythm, Normal S1, Normal S2 Abdominal: Normal bowel sounds, Soft, No tenderness Extremities: No edema Skin: No significant lesion Neuro: Normal gait, Normal speech, Strength at 5/5 X4 ext, Cranial nerves 3-12 NL Psych/Mental Status: Mental status NL, Mood NL, Thoughts/Content NL Assessment/Plan ASSESSMENT: [ Chest pain, POA Hypertension Hyperlipidemia CAD] PLAN: [ Admit patient to medical floor as inpatient status. Place patient on telemetry monitoring. Chest pain: Administer aspirin 325 mg by mouth times 1 dose Continue aspirin 81 mg by mouth once daily Nitroglycerin sublingual 0.4 mg as needed for chest pain every 5 minutes, max 3 doses, hold for systolic blood pressure less than 100 mmHg. Trend troponin every 6 hours x 3 sets Supplemental oxygen to maintain O2 saturation greater than 92% Consult cardiology for evaluation and further recommendations Hypertension, hyperlipidemia, CAD: Consider resuming home medications once they have been reconciled. At time of admission home medications has been reconciled. For now: Hydralazine 10 mg IV every 4 hours for systolic blood pressure greater than 160 mmHg Atorvastatin 40 mg by mouth once daily. GI prophylaxis, famotidine DVT prophylaxis, Lovenox ADVANCED CARE PLANNING 1. Which of the following were discussed? Hospice Care - Yes Therapeutic options - yes Advance Directives - Yes - patient states he does not have any advance dir ectives in place at this time, however his father Nathen can make decisions for him if he becomes unable Other discussions - patient wishes to remain a full code 2. Discussed with who? Patient 3. Voluntary nature of this service was explained to the patient? Yes 4. Amount of time spent - ___16 minutes____ 5. Reviewed by Physician? (if this service was performed by NPP) Yes This document was generated in part using voice recognition software, occasional wrong word or sound alike substitutions may have occurred due to the inherent limitations of voice recognition software. Read the chart carefully and recognize using context, where the substitutions have occurred. Although every effort was made to edit the content, attorney at law and typing errors may occur ATTESTATION BY PHYSICIAN I have seen and examined the patient. I reviewed the documentation, medical decision making, and treatment plan as noted by the mid-level provider above. I agree with the findings and plan of care.] JERALD ARAGON APPRENTICE COSMETOLOGIST May 01, 2025 00:11
[2025-05-01] MEDS ORDERED: LACTULOSE 20 GM/30 ML UDCUP PO PRN (00:30)
[2025-05-01] MEDS ORDERED: NITROGLYCERIN 0.4 MG SL TAB SL PRN (00:30)
[2025-05-01] MEDS ORDERED: ROSU40TA88 PO (02:03)
[2025-05-01] MEDS ORDERED: VALA100031 PO (02:03)
[2025-05-01] MEDS ORDERED: LOSA25TA41 PO (02:03)
[2025-05-01] MEDS ORDERED: RANO500T6 PO (02:03)
[2025-05-01 02:15] VITALS: PULSE 65
[2025-05-01 03:33] LABS: IMMATURE GRANULOCYTE ABSOLUTE 0.02 K/uL (0-1); NUCLEATED RED BLOOD CELLS 0.0 % (0.0-0.19); PLATELET COUNT (AUTO) 267 K/uL (130-400); RED BLOOD CELL COUNT(AUTO) 4.39 MIL/uL (4.50-6.20); RED CELL DISTRIBUTION WIDTH 13.9 % (11.0-15.5); WHITE BLOOD COUNT (AUTO) 8.1 K/uL (4.8-10.8)
[2025-05-01 03:47] LABS: CREATININE 0.7 mg/dL (0.5-1.3); GLOMERULAR FILTR. RATE CALC 112.0 mL/min (>90); GLUCOSE,RANDOM 90.0 mg/dL (70-105); PHOSPHORUS 4.2 mg/dL (2.5-4.9); SODIUM SERUM 137.0 mmol/L (136-145); UREA NITROGEN, BLOOD 15.0 mg/dL (7-18)
[2025-05-01] MEDS: FAMOTIDINE 20MG TAB PO SCH (08:45)
[2025-05-01] MEDS: ASPIRIN 81 MG EC TAB PO SCH (08:45)
[2025-05-01 09:41] LABS: APPEARANCE,URINE CLEAR (CLEAR); GLUCOSE, URINE (UA) NEGATIVE (NEGATIVE); LEUKOCYTE ESTERASE ,URINE NEGATIVE Leu/uL (NEGATIVE); NITRATE,URINE NEGATIVE (NEGATIVE); OCCULT BLOOD,URINE NEGATIVE (NEGATIVE)
[2025-05-01 09:47] LABS: ADD UA MICROSCOPIC NO
[2025-05-01 09:48] LABS: AMPHET/METH SCREEN,URINE NEGATIVE (NEGATIVE); BARBITURATE SCREEN, URINE NEGATIVE (NEGATIVE); CANNABINOID SCREEN,URINE NEGATIVE (NEGATIVE); COCAINE SCREEN,URINE NEGATIVE (NEGATIVE)
[2025-05-01] MEDS: ENOXAPARIN SODIUM 40 MG/0.4 ML SYRINGE SQ SCH (12:00)
--- NOTE | 2025-05-01 14:07 | CONS ---
[facility] CARDIOLOGY CONSULTATION REPORT Cardiology consultation note dictated for Allan Barber MD Primary floor coverer: Nancy Velasquez MD Date Patient Seen: May 01, 2025 Requesting Physician: CAMELIA Drew Reason for Consultation: Chest pain History of Present Illness: This is a 50-year-old male with a past medical history of hypertension, hyperlipidemia, CAD s/p CABG x3 (BURGESS-LAD, SVG-PDA, and SVG-OM1) in 10/17/[address] Ingrid Ulrich, [facility]/coronary angiogram on 12/08/2017 demonstrated a patent BURGESS graft to the LAD, a completely occluded SVG to the OM1, and a patent SVG to the distal RCA, s/p PTCA/stent to the ostial OM with a 3.0 x 8 mm drug-eluting stent, a 3.0 x 12 mm stent to the mid LAD and a 3.0 x 23 mm stent to the proximal circumflex artery, Lexiscan stress test on 04/18/2021 with moderate inferior ischemia of moderate size, subsequent [facility]/coronary angiogram on 05/26/2021 demonstrated a patent BURGESS graft to the LAD, an occluded SVG to OM, an occluded SVG to RCA, and multiple lesions in LCx, LVEF of 42% with mild septal hypokinesia via 2D Echo on 05/27/2021, history of meth and cocaine use and noncompliance who presented to the ED with complaints of chest discomfort. Cardiology has been consulted for chest pain. The patient endorsed a three week onset of fatigue and a two day onset of constant, midsternal chest discomfort with radiation to the anterior neck and back. The patient describes the disc omfort as a tightness with a 5-6/10 intensity. Accompanying symptoms included dizziness, diaphoresis, shortness of breath and nausea. He denied aggravating factors and admitted IV morphine helped decrease the intensity and massaging the area can help. He states these symptoms are similar to the symptoms he had prior to CABG. Troponin were negative x3. EKG demonstrated NSR with a hr of 77bpm with TWI in the inferior leads similar to EKG on 08/25/2021. Past Medical History: As per HPI and summarized below Past Surgical History: CABG x3 (BURGESS-LAD, SVG-PDA, and SVG-OM1) in 10/17/[address] Ingrid Ulrich Family History: The patient's father has a history of CVAs. Social History: The patient is currently an [facility]. Habits: He admits to a history of meth and cocaine use two years ago, but denies alcohol or tobacco use. Home Meds: Aspirin 81 mg daily Clopidogrel 75 mg daily Metoprolol tartrate 25 mg daily Losartan 25 mg daily Ranolazine 500 mg b.i.d. Rosuvastatin 40 mg daily Valacyclovir 1000 mg t.i.d. x7 days Current Meds: Medications Dose Ordered Sig/Jonh Start Time Stop Time Status Last Admin Acetaminophen 650 mg Q6H PRN 05/01/25 00:30 05/31/25 00:29 Atorvastatin Calcium 40 mg HS 05/01/25 21:00 05/31/25 20:59 Enoxaparin Sodium 40 mg DAILY 05/01/25 09:00 05/31/25 08:59 05/01/25 12:00 Famotidine 20 mg DAILY 05/01/25 09:00 05/31/25 08:59 05/01/25 08:45 Hydralazine HCl 10 mg Q6H PRN 05/01/25 00:30 05/31/25 00:29 Lactulose 20 gm BID PRN 05/01/25 00:30 05/31/25 00:29 Morphine Sulfate 2 mg Q4H PRN 05/01/25 00:30 05/08/25 00:29 05/01/25 08:20 Nitroglycerin 0.4 mg PROTOCOL PRN 05/01/25 00:30 05/31/25 00:29 Ondansetron HCl 4 mg Q6H PRN 05/01/25 00:30 05/31/25 00:29 Aspirin 81 mg DAILY 05/01/25 09:00 05/31/25 08:59 05/01/25 08:45 Review of Systems: CONST: No fever, fatigue, or weight changes. EYES: No recent vision problems. ENT: No congestion, ear pain, or sore throat. C/V: No palpitations or edema. Admits to intermittent chest pressure. RESP: No cough, congestion, wheezing or shortness of breath. GI: No abdominal pain, nausea, vomiting, constipation, or diarrhea. : No incontinence or dysuria. SKIN: No rash. NEURO: No headache, focal numbness or weakness, dizziness, or seizures. PSYCH: No depression or anxiety. HEME: No abnormal bruising or bleeding. LYMPH: No swollen glands. Physical Examination: GENERAL: No acute distress. HEAD: Normal with no signs of head trauma. EYES: PERRLA, EOMI, conjunctiva and sclera normal. ENT: Hearing grossly intact, normal oropharynx. NECK: Supple without JVD. There is no tenderness, lymphadenopathy, or masses. No thyromegaly. Normal carotid upstrokes without bruits. LUNGS: Clear breath sounds bilaterally. No wheezes, or rhonchi. HEART: Normal rate and rhythm. Normal S1 and S2 without murmurs, gallop or rub. VASC: Peripheral pulses +2 bilaterally. ABD: Bowel sounds normal, soft, nontender, no masses, no organomegaly. No audible bruits. : Not examined LYMPH: No lymphadenopathy noted. EXT: No clubbing, cyanosis or edema. SKIN: No rashes or lesions noted. NEURO: Awake, alert, and oriented x3. No focal sensory or strength deficits noted. Vital Signs (last 8hr) Date Time Temp Pulse Resp B/P (MAP) Pulse Ox O2 Delivery O2 Flow Rate FiO2 05/01/25 10:02 98.4 84 18 131/81 99 Room Air* 0 21 Laboratory: Hematology Labs: Test 05/01/25 03:05 Range/Units White Blood Count 8.1 4.8-10.8 K/uL Red Blood Count 4.39 L 4.50-6.20 MIL/uL Hemoglobin 13.4 L 14.0-18.0 g/dL Hematocrit 39.4 L 42-54 % Mean Corpuscular Volume 89.7 79-99 fL Mean Corpuscular Hemoglobin 30.5 27.0-33.0 pg Mean Corpuscular Hemoglobin Concent 34.0 32.0-36.0 g/dL Red Cell Distribution Width 13.9 11.0-15.5 % Platelet Count 267 130-400 K/uL Mean Platelet Volume 9.2 7.5-10.5 fL Immature Granulocyte % (Auto) 0.2 0-1 % Neutrophils (%) (Auto) 57.4 40.0-77.0 % Lymphocytes (%) (Auto) 33.3 21.0-51.0 % Monocytes (%) (Auto) 6.9 3.0-13.0 % Eosinophils (%) (Auto) 2.0 0.0-8.0 % Basophils (%) (Auto) 0.2 0.0-5.0 % Neutrophils # (Auto) 4.6 1.8-7.7 K/uL Lymphocytes # (Auto) 2.7 1.0-4.8 K/uL Monocytes # (Auto) 0.6 0.1-1.0 K/uL Eosinophils # (Auto) 0.16 0.00-0.70 K/uL Basophils # (Auto) 0.02 0.00-0.20 K/uL Absolute Immature Granulocyte (auto 0.02 0-1 K/uL Nucleated Red Blood Cells 0.0 0.0-0.19 % Chemistry Labs: Test 05/01/25 10:10 05/01/25 03:05 04/30/25 21:25 Range/Units Troponin I High Sensitivity 6 4-75 ng/L Sodium Level 137 136-145 mmol/L Potassium Level 3.8 3.5-5.1 mmol/L Chloride Level 101 101-111 mmol/L Carbon Dioxide Level 29 21-32 mmol/L Blood Urea Nitrogen 15 7-18 mg/dL Creatinine 0.7 0.5-1.3 mg/dL Glomerular Filtration Rate Calc 112 >90 mL/min Random Glucose 90 70-105 mg/dL Total Calcium 8.7 8.5-10.1 mg/dL Phosphorus Level 4.2 2.5-4.9 mg/dL Magnesium Level 2.10 1.80-2.40 mg/dL Total Creatine Kinase 88 # 21-232 U/L B-Type Natriuretic Peptide 67 0-100 pg/mL Diagnostics / Radiology: Impression and Plan: Atypical chest pain Hypertension Hyperlipidemia CAD s/p CABG x3 (BURGESS-LAD, SVG-PDA, and SVG-OM1) in 10/17/[address] Ingrid Ulrich [facility]/coronary angiogram on 12/08/2017 demonstrated a patent BURGESS graft to the LAD, a completely occluded SVG to the OM1, and a patent SVG to the distal RCA, s/p PTCA/stent to the ostial OM with a 3.0 x 8 mm drug-eluting stent, a 3.0 x 12 mm stent to the mid LAD and a 3.0 x 23 mm stent to the proximal circumflex artery Lexiscan stress test on 04/18/2021 with moderate inferior ischemia of moderate size Subsequent [facility]/coronary angiogram on 05/26/2021 demonstrated a patent BURGESS graft to the LAD, an occluded SVG to OM, an occluded SVG to RCA, and multiple lesions in LCx LVEF of 42% with mild septal hypokinesia via 2D Echo on 05/27/2021 History of meth and cocaine use Noncompliance Atypical chest pain Troponin are negative x3 EKG demonstrated NSR with a hr of 77bpm, QTc 418, and TWI in the inferior leads similar to EKG on 08/25/2021 -Resume Aspirin 81m daily, Atorvastatin 40mg nightly, Metoprolol succinate 25mg daily, and Ranexa -Hold Losartan 25mg daily due to marginal blood pressure -Obtain 2D Echo to assess LV function -Start Meloxicam 15mg daily STEVEN TOMLINSONP May 01, 2025 14:07
--- NOTE | 2025-05-01 14:11 | NUR ---
DCP: [facility] Per officer Kelvin Ulrich, pt is in custody of [facility] and will return [place] Addendum: 05/01/25 at 1415 by ANISH SALAZAR Amended: Links added.
[2025-05-01] MEDS: MELOXICAM 7.5 MG TABLET PO SCH (18:48)
[2025-05-01 20:40] VITALS: BP 120/55; PULSE 65; PULSE 76; RESP 20; TEMP 97.8
[2025-05-01] MEDS: RANOLAZINE 500 MG TAB.SR.12H PO SCH (21:56)
[2025-05-01 23:31] VITALS: BP 116/66; PULSE 69; RESP 20; TEMP 97.8
[2025-05-02] VITALS (8 sets, daily range): BP systolic 95–109; BP diastolic 50–73; PULSE 61–71; RESP 15–20; TEMP 98–98.4; O2SAT 98–99
--- NOTE | 2025-05-02 09:27 | PN ---
[facility] PROGRESS NOTE Date of Service: May 02, 2025 Time of Service: 09:19 SUBJECTIVE: [ ] Patient came to the emergency department with a chief complaint of shortness of breaths. Onset was 04/30/2025 noon. Location is to lungs. Duration is on and off. Character is described as, "like I do not get enough air. "There was no alleviating factors. Symptoms are aggravated with physical activity. Patient reports associated chest pain like tightness across both sides of his chest. Today in the emergency department CBC unremarkable, chemistry unremarkable, chest x-ray unremarkable, troponin unremarkable, no urinalysis has been collect ed or sent to lab. Emergency room physician recommended that patient be admitted with a diagnosis of chest pain. 05/02/25 patient is lying in bed patient denies chest pain. Patient waiting for echo primary nurse notify security tech. REVIEW OF SYSTEMS CONSTITUTIONAL: Denies fevers, chills, or night sweats. No unintentional weight loss reported. NEUROLOGICAL: Denies headache, amaurosis fugax, motor weakness, sensory deficit, vertigo/spinning sensation, gait abnormalities, or tremors. ENT: No hearing loss, otalgia, otorrhea, rhinitis, rhinorrhea, hoarseness, or sore throat. CARDIOVASCULAR: Denies any exertional angina, dyspnea on exertion, orthopnea, paroxysmal nocturnal dyspnea, palpitations, life-threatening arrhythmias, claudication. PULMONARY: Denies any shortness of breath, cough, phlegm/sputum, hemoptysis, pleuritic chest pain. SLEEP: Denies morning headaches, daytime somnolence or napping. Denies difficulty falling asleep, staying asleep, waking from sleep. Denies knowledge of snoring. GASTROINTESTINAL: Denies any type of dysphagia to either liquids or solids. Denies nausea, vomiting, pyrosis, early satiety, abdominal pain, diarrhea, constipation, or changes in stool consistency or caliber. Denies coffee-ground emesis, hematemesis, hematochezia, or melanotic stools. GENITOURINARY: Denies frequency, urgency, nocturia, hematuria or incontinence (Storage/Irritative symptoms.) Low urinary stream, straining to void, urinary intermittency or hesitancy, splitting of the voiding stream, terminal dribbling. ENDOCRINOLOGIC: Denies polyuria, polydipsia, polyphagia or heat/cold intolerances. HEMATOLOGIC: Denies thrombophilia/previous clots, or coagulopathy/bleeding disorders. ONCOLOGIC: Denies personal history of malignancy. DERMATOLOGIC: Denies rashes or pruritus. PSYCHIATRIC: Denies any suicidal or homicidal ideation. Denies hallucinations. PHYSICAL EXAM GENERAL APPEARANCE: The patient is awake, alert, and oriented, in no acute cardiopulmonary distress. NEUROLOGICAL: Cranial nerves II-XII grossly intact. Motor is 5/5 in bilateral upper and lower extremities proximal to distal. No sensory deficits. HEENT: Face is symmetric. Pupils are equal and reactive. Extraocular movements are intact. NECK: Supple. No JVD. No thyromegaly. No submental, submandibular, pre- /postauricular, occipital or supraclavicular lymphadenopathy. CHEST: Normal chest expansion. No Telemetry. LUNGS: Absence of any rales, rhonchi or any wheezing. CARDIOVASCULAR: Regular. S1 and S2 normal. No appreciable rubs, murmurs or gallops. ABDOMEN: Soft, nontender, and nondistended. There is no rebound, voluntary gu arding, or rigidity. : Deferred. No Call. EXTREMITIES: Non-edematous and not cyanotic. No clubbing. Good capillary refill. SKIN: No skin breakdown. Vital Signs (last 8hr) Date Time Temp Pulse Resp B/P (MAP) Pulse Ox O2 Delivery O2 Flow Rate FiO2 05/02/25 07:46 98.2 61 18 109/68 98 Room Air 05/02/25 03:40 98.1 66 20 99/50 97 Room Air LABS: Laboratory: Test 05/01/25 14:16 05/01/25 09:30 05/01/25 03:05 04/30/25 21:25 Range/Units D-Dimer Quantitative (PE/DVT) 285 0-500 ng/mL Troponin I High Sensitivity 5 4-75 ng/L Urine Color LIGHT-YELLOW YELLOW Urine Appearance CLEAR CLEAR Urine pH 6.0 5.0-8.0 Urine Specific [place] 1.013 1.001-1.031 Urine Protein NEGATIVE NEGATIVE mg/dL Urine Glucose (UA) NEGATIVE NEGATIVE mg/dL Urine Ketones NEGATIVE NEGATIVE mg/dL Urine Occult Blood NEGATIVE NEGATIVE Urine Nitrate NEGATIVE NEGATIVE Urine Bilirubin NEGATIVE NEGATIVE mg/dL Urine Urobilinogen 0.2 0.2-1.0 mg/dL Urine Leukocyte Esterase NEGATIVE NEGATIVE Adele/uL Urine Opiates Screen NEGATIVE NEGATIVE Urine Barbiturates Screen NEGATIVE NEGATIVE Urine Phencyclidine Screen NEGATIVE NEGATIVE Urine Amphetamines Screen NEGATIVE NEGATIVE Urine Benzodiazepines Screen NEGATIVE NEGATIVE Urine Cocaine Screen NEGATIVE NEGATIVE Urine Marijuana (THC) Screen NEGATIVE NEGATIVE White Blood Count 8.1 4.8-10.8 K/uL Red Blood Count 4.39 L 4.50-6.20 MIL/uL Hemoglobin 13.4 L 14.0-18.0 g/dL Hematocrit 39.4 L 42-54 % Mean Corpuscular Volume 89.7 79-99 fL Mean Corpuscular Hemoglobin 30.5 27.0-33.0 pg Mean Corpuscular Hemoglobin Concent 34.0 32.0-36.0 g/dL Red Cell Distribution Width 13.9 11.0-15.5 % Platelet Count 267 130-400 K/uL Mean Platelet Volume 9.2 7.5-10.5 fL Immature Granulocyte % (Auto) 0.2 0-1 % Neutrophils (%) (Auto) 57.4 40.0-77.0 % Lymphocytes (%) (Auto) 33.3 21.0-51.0 % Monocytes (%) (Auto) 6.9 3.0-13.0 % Eosinophils (%) (Auto) 2.0 0.0-8.0 % Basophils (%) (Auto) 0.2 0.0-5.0 % Neutrophils # (Auto) 4.6 1.8-7.7 K/uL Lymphocytes # (Auto) 2.7 1.0-4.8 K/uL Monocytes # (Auto) 0.6 0.1-1.0 K/uL Eosinophils # (Auto) 0.16 0.00-0.70 K/uL Basophils # (Auto) 0.02 0.00-0.20 K/uL Absolute Immature Granulocyte (auto 0.02 0-1 K/uL Nucleated Red Blood Cells 0.0 0.0-0.19 % Sodium Level 137 136-145 mmol/L Potassium Level 3.8 3.5-5.1 mmol/L Chloride Level 101 101-111 mmol/L Carbon Dioxide Level 29 21-32 mmol/L Blood Urea Nitrogen 15 7-18 mg/dL Creatinine 0.7 0.5-1.3 mg/dL Glomerular Filtration Rate Calc 112 >90 mL/min Random Glucose 90 70-105 mg/dL Total Calcium 8.7 8.5-10.1 mg/dL Phosphorus Level 4.2 2.5-4.9 mg/dL Magnesium Level 2.10 1.80-2.40 mg/dL Total Creatine Kinase 88 # 21-232 U/L B-Type Natriuretic Peptide 67 0-100 pg/mL Current Medications Medications (Trade) Dose Ordered Sig/Jonh Route PRN Reason Start Time Stop Time Status Last Admin Dose Admin Acetaminophen (TYLenol 325MG TAB) 650 mg Q6H PRN PO TEMPERATURE GREATER THAN 101.5 05/01/25 00:30 05/31/25 00:29 Aspirin (Aspirin 81mg Ec Tab) 81 mg DAILY PO 05/01/25 09:00 05/31/25 08:59 05/02/25 08:56 81 MG Atorvastatin Calcium (LIPItor 40MG) 40 mg HS PO 05/01/25 21:00 05/31/25 20:59 05/01/25 21:56 40 MG Enoxaparin Sodium (Lovenox) 40 mg DAILY SQ 05/01/25 09:00 05/31/25 08:59 05/02/25 08:57 40 MG Famotidine (Pepcid 20mg Tab) 20 mg DAILY PO 05/01/25 09:00 05/31/25 08:59 05/02/25 08:56 20 MG Hydralazine HCl (APRESOLine 20MG INJ) 10 mg Q6H PRN IV For:SBP above 160;DBP above 90 05/01/25 00:30 05/31/25 00:29 Lactulose (Constulose 20gm/ 30ml Udcup) 20 gm BID PRN PO CONSTIPATION 05/01/25 00:30 05/31/25 00:29 Losartan Potassium (CozAAR 25MG TAB) 25 mg DAILY PO 05/02/25 09:00 05/01/25 17:58 DC Meloxicam (Mobic 7.5mg) 15 mg DAILY PO 05/01/25 18:00 05/31/25 17:59 05/02/25 08:55 15 MG Metoprolol Succinate (TopROL XL) 25 mg DAILY PO 05/01/25 15:00 05/31/25 14:59 05/02/25 08:56 25 MG Morphine Sulfate (morPHINE 4MG SYG) 2 mg Q4H PRN IVP SEVERE PAIN (7-10) 05/01/25 00:30 05/08/25 00:29 05/01/25 08:20 2 MG Nitroglycerin (Nitrostat) 0.4 mg AD PRN SL CHEST PAIN 04/30/25 23:30 05/01/25 00:15 DC Nitroglycerin (Nitrostat) 0.4 mg PROTOCOL PRN SL CHEST PAIN 05/01/25 00:30 05/31/25 00:29 Ondansetron HCl (zoFRAN 4MG INJ) 4 mg Q6H PRN IV NAUSEA/VOMITING 05/01/25 00:30 05/31/25 00:29 Ranolazine (Ranexa) 500 mg BID PO 05/01/25 21:00 05/31/25 20:59 05/02/25 08:55 500 MG DIAGNOSTICS / RADIOLOGY: [ ] ASSESSMENT: Atypical Chest pain, POA suspecting musculoskeletal chest pain POA History of meth and cocaine use Noncompliance POA Hypertension Hyperlipidemia CAD] PLAN: [ ] This is a 50-year-old with a significant medical history of CAD status post CABG x3 2008. 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 ACS protocol aspirin 80 1 mg daily atorvastatin 40 mg nightly metoprolol succinate 25 mg daily and Ranexa. Troponins x3 negative no chest pain events overnight. We will follow filter plant supervisor's recommendations. Admit: medical with Tele condition: Guarded Status: Full code IVF: [employer] filter plant supervisor's Imaging echo pending Labs cbc, cmp, mag+ Replace electrolytes as needed as per protocol to keep potassium above 4.0 magnesium 2.0. Supportive measures: DVT ppx, GI ppx all questions answered Supervising MD: Dr. Fidencio Carmen c/d This document was generated in part using voice recognition software, occasional wrong word or sound alike substitutions may have occurred due to the inherent limitations of voice recognition software. Read the chart carefully and recognize using context, where the substitutions have occurred. Although every effort was made to edit the content, colored leather setter and typing errors may occur ATTESTATION BY PHYSICIAN I have seen and examined the patient. I reviewed the documentation, medical decision making, and treatment plan as noted by the mid-level provider above. I agree with the findings and plan of care. RICARDO VALE MD, ELIZABETH NP May 02, 2025 09:27
--- NOTE | 2025-05-02 17:45 | PN ---
[facility] CARDIOLOGY PROGRESS NOTE Date Patient Seen: May 02, 2025 Time of Visit: 17:41 Interval History: [ ] Physical Examination: GENERAL: [No acute distress.] HEAD: [Normal with no signs of head trauma.] EYES: [PERRLA, EOMI, conjunctiva and sclera normal.] ENT: [Hearing grossly intact, normal oropharynx.] NECK: [Supple without JVD. There is no tenderness, lymphadenopathy, or masses. No thyromegaly. Normal carotid upstrokes without bruits.] LUNGS: [Clear breath sounds bilaterally. There are right basilar rales one third of the way up the chest. No wheezes, or rhonchi.] HEART: [Normal rate and rhythm. Normal S1 and S2 without mumurs, gallop or rub.] VASC: [Peripheral pulses +2 bilaterally.] ABD: [Bowel sounds normal, soft, nontender, no masses, no organomegaly. No audible bruits.] : [Not examined] LYMPH: [No lymphadenopathy noted.] EXT: [No clubbing, cyanosis or edema.] SKIN: [No rashes or lesions noted.] NEURO: [Awake, alert, and oriented x3. No focal sensory or strength deficits noted.] Laboratory: [ ] Hematology Labs: Test 05/01/25 03:05 Range/Units White Blood Count 8.1 4.8-10.8 K/uL Red Blood Count 4.39 L 4.50-6.20 MIL/uL Hemoglobin 13.4 L 14.0-18.0 g/dL Hematocrit 39.4 L 42-54 % Mean Corpuscular Volume 89.7 79-99 fL Mean Corpuscular Hemoglobin 30.5 27.0-33.0 pg Mean Corpuscular Hemoglobin Concent 34.0 32.0-36.0 g/dL Red Cell Distribution Width 13.9 11.0-15.5 % Platelet Count 267 130-400 K/uL Mean Platelet Volume 9.2 7.5-10.5 fL Immature Granulocyte % (Auto) 0.2 0-1 % Neutrophils (%) (Auto) 57.4 40.0-77.0 % Lymphocytes (%) (Auto) 33.3 21.0-51.0 % Monocytes (%) (Auto) 6.9 3.0-13.0 % Eosinophils (%) (Auto) 2.0 0.0-8.0 % Basophils (%) (Auto) 0.2 0.0-5.0 % Neutrophils # (Auto) 4.6 1.8-7.7 K/uL Lymphocytes # (Auto) 2.7 1.0-4.8 K/uL Monocytes # (Auto) 0.6 0.1-1.0 K/uL Eosinophils # (Auto) 0.16 0.00-0.70 K/uL Basophils # (Auto) 0.02 0.00-0.20 K/uL Absolute Immature Granulocyte (auto 0.02 0-1 K/uL Nucleated Red Blood Cells 0.0 0.0-0.19 % Chemistry Labs: Test 05/01/25 14:16 05/01/25 03:05 04/30/25 21:25 Range/Units Troponin I High Sensitivity 5 4-75 ng/L Sodium Level 137 136-145 mmol/L Potassium Level 3.8 3.5-5.1 mmol/L Chloride Level 101 101-111 mmol/L Carbon Dioxide Level 29 21-32 mmol/L Blood Urea Nitrogen 15 7-18 mg/dL Creatinine 0.7 0.5-1.3 mg/dL Glomerular Filtration Rate Calc 112 >90 mL/min Random Glucose 90 70-105 mg/dL Total Calcium 8.7 8.5-10.1 mg/dL Phosphorus Level 4.2 2.5-4.9 mg/dL Magnesium Level 2.10 1.80-2.40 mg/dL Total Creatine Kinase 88 # 21-232 U/L B-Type Natriuretic Peptide 67 0-100 pg/mL Coagulation Labs: Test 05/01/25 14:16 Range/Units D-Dimer Quantitative (PE/DVT) 285 0-500 ng/mL Diagnostics / Radiology: [Copy/Paste Echos/Imaging Report here] Impression and Plan: [ Atypical chest pain Hypertension Hyperlipidemia CAD s/p CABG x3 (BURGESS-LAD, SVG-PDA, and SVG-OM1) in 10/17/[address] Ingrid Ulrich [facility]/coronary angiogram on 12/08/2017 demonstrated a patent BURGESS graft to the LAD, a completely occluded SVG to the OM1, and a patent SVG to the distal RCA, s/p PTCA/stent to the ostial OM with a 3.0 x 8 mm drug-eluting stent, a 3.0 x 12 mm stent to the mid LAD and a 3.0 x 23 mm stent to the proximal circumflex artery Yasmine stress test on 04/18/2021 with moderate inferior ischemia of moderate size Subsequent [facility]/coronary angiogram on 05/26/2021 demonstrated a patent BURGESS graft to the LAD, an occluded SVG to OM, an occluded SVG to RCA, and multiple lesions in LCx LVEF of 42% with mild septal hypokinesia via 2D Echo on 05/27/2021 History of meth and cocaine use Noncompliance Atypical chest pain Troponin are negative x3 EKG demonstrated NSR with a hr of 77bpm, QTc 418, and TWI in the inferior leads similar to EKG on 08/25/2021 -Resume Aspirin 81m daily, Atorvastatin 40mg nightly, Metoprolol succinate 25mg daily, and Ranexa -Hold Losartan 25mg daily due to marginal blood pressure -Obtain 2D Echo to assess LV function with drop in LVEF to 35-40%, ordered AVERY Hernandez MD May 02, 2025 17:45
--- NOTE | 2025-05-02 17:54 | HMCSR ---
APPROVED REPORT EXAM: Three dimensional/Two-dimensional and M-mode echocardiogram with Doppler and color Doppler. INDICATION ICD: I50.20 Chronic systolic heart failure 2D Dimensions RVDd4.0 cmLVEF(%)55.9 (>50%)LVED Vol(simp.)160.0 mL IVSd1.2 (0.7-1.1cm)FS(%)30 %LVES Vol(simp.)98.0 mL LVDd5.9 (3.8-5.6cm)LA (2D)3.8 (1.6-4.0cm)LVEF(%, simp.)39 % PWd1.0 (0.7-1.1cm)Ao Root(2D)3.3 (2.0-3.7cm)LA ESV INDEX (BP)22.32 mL/m2 IVSs1.4 cmLVOT diam2.3 (1.8-2.4cm) LVDs4.2 (2.5-4.0cm)IVC diam1.0 cm PWs1.8 cm Deformation Strain Apical 4-11.6 % Apical 2-11.5 % Apical 3-13.0 % Global Strain-12.0 % M-Mode Dimensions EPSS1.4 cm LA (MM)3.9 (1.6-4.0cm) Ao Root(MM)3.3 (2.0-3.7cm) Aortic Valve AoV Vmax1.0 m/Vasiliy Peak GR4.2 mmHgLVOT Vmax0.9 m/s AoV VTI0.2 mAo Mean GR2.5 mmHgLVOT VTI0.16 m MARÍA (VMAX)3.41 cm2AVA (VTI) 3.3 cm2 Mitral Valve MV E Vmax43.0 cm/sDECEL Yxbi300 ms MV A Vmax40.1 cm/sP 1/2 T136 ms E/A ratio1.1MVA (PHT)1.6 cm2 TDI E/E' Medial6.4E/E' Lateral4.4 Medial E' Peak V6.76 cm/sLateral E' Peak V9.88 cm/s Pulmonary Valve PV Vmax0.9 m/sPV VTI0.16 mPV Mean GR1.7 mmHg PV Peak GR3.2 mmHg Tricuspid Valve RAP (EST) 3 mmHgRVSP3.0 mmHg Left Ventricle The left ventricle is normal size. GLS -12.0% There is normal left ventricular wall thickness. LVEF i s 35-40%. 3D volume EF 39% Stage I diastolic dysfunction. Right Ventricle The right ventricle is normal size. Right ventricular systolic function is mildly to moderately reduc ed. Atria The left atrium size is normal. The right atrium size is normal. Aortic Valve Aortic valve is trileaflet and opens well. No aortic regurgitation is present. There is no aortic polly vular stenosis. Mitral Valve The mitral valve is normal in structure. There is trace of mitral valve regurgitation noted. There is no mitral valve stenosis. Tricuspid Valve The tricuspid valve is normal in structure. There is no tricuspid valve regurgitation noted. Pulmonic Valve The pulmonary valve is normal in structure. There is no pulmonic valvular regurgitation. Great Vessels The aortic root is normal in size. The IVC is normal in size and collapses >50% with inspiration. Pericardium There is no pericardial effusion. Other Information Quality : Adequate Conclusion The left ventricle is normal size. LVEF is 35-40%. 3D volume EF 39% Stage I diastolic dysfunction. The right ventricle is normal size. Right ventricular systolic function is mildly to moderately reduced. No valvular pathology There is no pericardial effusion.
[2025-05-03 05:05] VITALS: BP 95/51; PULSE 57; RESP 17; TEMP 98.2
[2025-05-03 08:00] VITALS: BP 120/67; PULSE 57; RESP 18; TEMP 97.5
[2025-05-03 08:22] VITALS: O2SAT 97
[2025-05-03] MEDS: REGADENOSON 0.4 MG/5 ML PF SYG IVP ONE (08:35)
--- NOTE | 2025-05-03 09:55 | PN ---
[facility] PROGRESS NOTE Date of Service: May 03, 2025 Time of Service: 09:50 SUBJECTIVE: [ ] Patient came to the emergency department with a chief complaint of shortness of breaths. Onset was 04/30/2025 noon. Location is to lungs. Duration is on and off. Character is described as, "like I do not get enough air. "There was no alleviating factors. Symptoms are aggravated with physical activity. Patient reports associated chest pain like tightness across both sides of his chest. Today in the emergency department CBC unremarkable, chemistry unremarkable, chest x-ray unremarkable, troponin unremarkable, no urinalysis has been collect ed or sent to lab. Emergency room physician recommended that patient be admitted with a diagnosis of chest pain. 05/02/25 patient is lying in bed patient denies chest pain. Patient waiting for echo primary nurse notify veterinary surgery technologist. 05/03/25 patient is seen and examined patient had a drop in LVEF to 35-40%, customer service assistant's scheduled lexiscan today. No chest pain events overnight. We will continue to follow customer service assistant's recommendations possible discharge if no further intervention per customer service assistant's. REVIEW OF SYSTEMS CONSTITUTIONAL: Denies fevers, chills, or night sweats. No unintentional weight loss reported. NEUROLOGICAL: Denies headache, amaurosis fugax, motor weakness, sensory defici t, vertigo/spinning sensation, gait abnormalities, or tremors. ENT: No hearing loss, otalgia, otorrhea, rhinitis, rhinorrhea, hoarseness, or sore throat. CARDIOVASCULAR: Denies any exertional angina, dyspnea on exertion, orthopnea, paroxysmal nocturnal dyspnea, palpitations, life-threatening arrhythmias, claudication. PULMONARY: Denies any shortness of breath, cough, phlegm/sputum, hemoptysis, pleuritic chest pain. SLEEP: Denies morning headaches, daytime somnolence or napping. Denies difficulty falling asleep, staying asleep, waking from sleep. Denies knowledge of snoring. GASTROINTESTINAL: Denies any type of dysphagia to either liquids or solids. Denies nausea, vomiting, pyrosis, early satiety, abdominal pain, diarrhea, constipation, or changes in stool consistency or caliber. Denies coffee-ground emesis, hematemesis, hematochezia, or melanotic stools. GENITOURINARY: Denies frequency, urgency, nocturia, hematuria or incontinence (Storage/Irritative symptoms.) Low urinary stream, straining to void, urinary intermittency or hesitancy, splitting of the voiding stream, terminal dribbling. ENDOCRINOLOGIC: Denies polyuria, polydipsia, polyphagia or heat/cold intolerances. HEMATOLOGIC: Denies thrombophilia/previous clots, or coagulopathy/bleeding disorders. ONCOLOGIC: Denies personal history of malignancy. DERMATOLOGIC: Denies rashes or pruritus. PSYCHIATRIC: Denies any suicidal or homicidal ideation. Denies hallucinations. PHYSICAL EXAM GENERAL APPEARANCE: The patient is awake, alert, and oriented, in no acute cardiopulmonary distress. NEUROLOGICAL: Cranial nerves II-XII grossly intact. Motor is 5/5 in bilateral upper and lower extremities proximal to distal. No sensory deficits. HEENT: Face is symmetric. Pupils are equal and reactive. Extraocular movements are intact. NECK: Supple. No JVD. No thyromegaly. No submental, submandibular, pre- /postauricular, occipital or supraclavicular lymphadenopathy. CHEST: Normal chest expansion. No Telemetry. LUNGS: Absence of any rales, rhonchi or any wheezing. CARDIOVASCULAR: Regular. S1 and S2 normal. No appreciable rubs, murmurs or gallops. ABDOMEN: Soft, nontender, and nondistended. There is no rebound, voluntary guarding, or rigidity. : Deferred. No Call. EXTREMITIES: Non-edematous and not cyanotic. No clubbing. Good capillary refill. SKIN: No skin breakdown. Vital Signs (last 8hr) Date Time Temp Pulse Resp B/P (MAP) Pulse Ox O2 Delivery O2 Flow Rate FiO2 05/03/25 08:22 97 Room Air* 0 21 05/03/25 08:00 97.5 57 18 120/67 97 Room Air 05/03/25 05:05 98.2 57 17 95/51 94 Room Air LABS: Laboratory: Test 05/01/25 14:16 Range/Units D-Dimer Quantitative (PE/DVT) 285 0-500 ng/mL Troponin I High Sensitivity 5 4-75 ng/L Current Medications Medications (Trade) Dose Ordered Sig/Jonh Route PRN Reason Start Time Stop Time Status Last Admin Dose Admin Acetaminophen (TYLenol 325MG TAB) 650 mg Q6H PRN PO TEMPERATURE GREATER THAN 101.5 05/01/25 00:30 05/31/25 00:29 Aspirin (Aspirin 81mg Ec Tab) 81 mg DAILY PO 05/01/25 09:00 05/31/25 08:59 05/02/25 08:56 81 MG Atorvastatin Calcium (LIPItor 40MG) 40 mg HS PO 05/01/25 21:00 05/31/25 20:59 05/02/25 21:23 40 MG Enoxaparin Sodium (Lovenox) 40 mg DAILY SQ 05/01/25 09:00 05/31/25 08:59 05/02/25 08:57 40 MG Famotidine (Pepcid 20mg Tab) 20 mg DAILY PO 05/01/25 09:00 05/31/25 08:59 05/02/25 08:56 20 MG Hydralazine HCl (APRESOLine 20MG INJ) 10 mg Q6H PRN IV For:SBP above 160;DBP above 90 05/01/25 00:30 05/31/25 00:29 Lactulose (Constulose 20gm/ 30ml Udcup) 20 gm BID PRN PO CONSTIPATION 05/01/25 00:30 05/31/25 00:29 Losartan Potassium (CozAAR 25MG TAB) 25 mg DAILY PO 05/02/25 09:00 05/01/25 17:58 DC Meloxicam (Mobic 7.5mg) 15 mg DAILY PO 05/01/25 18:00 05/31/25 17:59 05/02/25 08:55 15 MG Metoprolol Succinate (TopROL XL) 25 mg DAILY PO 05/01/25 15:00 05/31/25 14:59 05/03/25 08:34 25 MG Morphine Sulfate (morPHINE 4MG SYG) 2 mg Q4H PRN IVP SEVERE PAIN (7-10) 05/01/25 00:30 05/08/25 00:29 05/01/25 08:20 2 MG Nitroglycerin (Nitrostat) 0.4 mg AD PRN SL CHEST PAIN 04/30/25 23:30 05/01/25 00:15 DC Nitroglycerin (Nitrostat) 0.4 mg PROTOCOL PRN SL CHEST PAIN 05/01/25 00:30 05/31/25 00:29 Ondansetron HCl (zoFRAN 4MG INJ) 4 mg Q6H PRN IV NAUSEA/VOMITING 05/01/25 00:30 05/31/25 00:29 Ranolazine (Ranexa) 500 mg BID PO 05/01/25 21:00 05/31/25 20:59 05/02/25 21:23 500 MG DIAGNOSTICS / RADIOLOGY: [ ] ASSESSMENT: Atypical Chest pain, POA suspecting musculoskeletal chest pain POA History of meth and cocaine use Noncompliance POA Hypertension Hyperlipidemia CAD] Acute on chronic systolic heart failure LVEF to 35-40%, PLAN: [ ] This is a 50-year-old with a significant medical history of CAD status post CABG x3 2008. Patient had a decrease in EF 35 to 40% patient is scheduled for a Lexiscan. Admit: medical with Tele condition: Guarded Status: Full code IVF: [employer] customer service assistant's Imaging echo pending Labs cbc, cmp, mag+ Replace electrolytes as needed as per protocol to keep potassium above 4.0 magnesium 2.0. Supportive measures: DVT ppx, GI ppx all questions answered Supervising MD: Dr. Fidencio Carmen c/d This document was generated in part using voice recognition software, occasional wrong word or sound alike substitutions may have occurred due to the inherent limitations of voice recognition software. Read the chart carefully and recognize using context, where the substitutions have occurred. Although every effort was made to edit the content, electron beam machine welder setter and typing errors may occur ATTESTATION BY PHYSICIAN I have seen and examined the patient. I reviewed the documentation, medical decision making, and treatment plan as noted by the mid-level provider above. I agree with the findings and plan of care. RICARDO VALE MD, ELIZABETH NP May 03, 2025 09:55
[2025-05-03 10:26] LABS: IMMATURE GRANULOCYTE ABSOLUTE 0.02 K/uL (0-1); NUCLEATED RED BLOOD CELLS 0.0 % (0.0-0.19); PLATELET COUNT (AUTO) 279 K/uL (130-400); RED BLOOD CELL COUNT(AUTO) 4.68 MIL/uL (4.50-6.20); RED CELL DISTRIBUTION WIDTH 13.5 % (11.0-15.5); WHITE BLOOD COUNT (AUTO) 6.5 K/uL (4.8-10.8)
[2025-05-03 10:36] LABS: CREATININE 0.8 mg/dL (0.5-1.3); GLOMERULAR FILTR. RATE CALC 107.0 mL/min (>90); GLUCOSE,RANDOM 101.0 mg/dL (70-105); SODIUM SERUM 134.0 mmol/L (136-145); UREA NITROGEN, BLOOD 17.0 mg/dL (7-18)
[2025-05-03 10:40] LABS: ASPARTATE AMINOTRANSFERASE 11.0 U/L (10-37); TOTAL PROTEIN, SERUM 7.8 g/dL (6.0-8.3)
[2025-05-03 12:00] VITALS: BP 111/60; PULSE 60; RESP 16; TEMP 97.5
--- NOTE | 2025-05-03 12:37 | DS ---
Discharge Summary Hospital Course Summary: Patient came to the emergency department with a chief complaint of shortness of breaths. Onset was 04/30/2025 noon. Location is to lungs. Duration is on and off. Character is described as, "like I do not get enough air. "There was no alleviating factors. Symptoms are aggravated with physical activity. Patient reports associated chest pain like tightness across both sides of his chest. Today in the emergency department CBC unremarkable, chemistry unremarkable, chest x-ray unremarkable, troponin unremarkable, no urinalysis has been collected or sent to lab. Emergency room physician recommended that patient be admitted with a diagnosis of chest pain. 05/02/25 patient is lying in bed patient denies chest pain. Patient waiting for echo primary nurse notify scrub tech. 05/03/25 patient is seen and examined patient had a drop in LVEF to 35-40%, client services specialist's scheduled lexiscan today. No chest pain events overnight. We will continue to follow client services specialist's recommendations possible discharge if no further intervention per client services specialist's. Procedure(s): REASON: CHRONIC SYSTOLIC HEART FAILURE ORDERING PHYSICIAN: STEVEN TOMLINSON PROCEDURE: ECHO [facility] - ECHO 2-D COMPLETE APPROVED REPORT EXAM: Three dimensional/Two-dimensional and M-mode echocardiogram with Doppler and color Doppler. INDICATION ICD: I50.20 Chronic systolic heart failure 2D Dimensions RVDd 4.0 cm LVEF(%) 55.9 (>50%) LVED Vol(simp.) 160.0 mL IVSd 1.2 (0.7-1.1cm) FS(%) 30 % LVES Vol(simp.) 98.0 mL LVDd 5.9 (3.8-5.6cm) LA (2D) 3.8 (1.6-4.0cm) LVEF(%, simp.) 39 % PWd 1.0 (0.7-1.1cm) Ao Root(2D) 3.3 (2.0-3.7cm) LA ESV INDEX (BP) 22.32 mL/m2 IVSs 1.4 cm LVOT diam 2.3 (1.8-2.4cm) LVDs 4.2 (2.5-4.0cm) IVC diam 1.0 cm PWs 1.8 cm Deformation Strain Apical 4 -11.6 % Apical 2 -11.5 % Apical 3 -13.0 % Global Strain -12.0 % M-Mode Dimensions EPSS 1.4 cm LA (MM) 3.9 (1.6-4.0cm) Ao Root(MM) 3.3 (2.0-3.7cm) Aortic Valve AoV Vmax 1.0 m/s Ao Peak GR 4.2 mmHg LVOT Vmax 0.9 m/s AoV VTI 0.2 m Ao Mean GR 2.5 mmHg LVOT VTI 0.16 m MARÍA (VMAX) 3.41 cm2 MARÍA (VTI) 3.3 cm2 Mitral Valve MV E Vmax 43.0 cm/s DECEL Time 193 ms MV A Vmax 40.1 cm/s P 1/2 T 136 ms E/A ratio 1.1 MVA (PHT) 1.6 cm2 TDI E/E' Medial 6.4 E/E' Lateral 4.4 Medial E' Peak V 6.76 cm/s Lateral E' Peak V 9.88 cm/s Pulmonary Valve PV Vmax 0.9 m/s PV VTI 0.16 m PV Mean GR 1.7 mmHg PV Peak GR 3.2 mmHg Tricuspid Valve RAP (EST) 3 mmHg RVSP 3.0 mmHg Left Ventricle The left ventricle is normal size. GLS -12.0% There is normal left ventricular wall thickness. LVEF is 35-40%. 3D volume EF 39% Stage I diastolic dysfunction. Right Ventricle The right ventricle is normal size. Right ventricular systolic function is mildly to moderately reduced. Atria The left atrium size is normal. The right atrium size is normal. Aortic Valve Aortic valve is trileaflet and opens well. No aortic regurgitation is present. There is no aortic valvular stenosis. Mitral Valve The mitral valve is normal in structure. There is trace of mitral valve regurgitation noted. There is no mitral valve stenosis. Tricuspid Valve The tricuspid valve is normal in structure. There is no tricuspid valve regurgitation noted. Pulmonic Valve The pulmonary valve is normal in structure. There is no pulmonic valvular regurgitation. Great Vessels The aortic root is normal in size. The IVC is normal in size and collapses >50% with inspiration. Pericardium There is no pericardial effusion. Other Information Quality : Adequate Conclusion The left ventricle is normal size. LVEF is 35-40%. 3D volume EF 39% Stage I diastolic dysfunction. The right ventricle is normal size. Right ventricular systolic function is mildly to moderately reduced. No valvular pathology There is no pericardial effusion. Assessment/Plan: dISCHARGED DX'S Atypical Chest pain, POA LEXISCAN suspecting musculoskeletal chest pain POA History of meth and cocaine use Noncompliance POA Hypertension Hyperlipidemia CAD] Acute on chronic systolic heart failure LVEF to 35-40%, PLAN: [ ] ADMISSION DATE: 10/26/2024 DISCHARGE DATE: 05/03/2025 DISPOSITION: INCARCERATED CONDITION: STABLE BAG CHECKER(S): FISH HATCHERY INSPECTOR'S FOLLOW UP APPOINTMENT(S): PROCEDURES: LEXISCAN IMAGING (S) REPORT ATTACHED TO SUMMARY : ECHO MICROBIOLOGY: REPORT ATTACHED TO SUMMARY; NONE ACTIVITY: AD [place] HOME MEDICATIONS REVIEWED CHANGES ON HOME MEDICATIONS. [place] NEW MEDICATIONS NONE TEACHING: MONITOR BLOOD PRESSURE TO KEEP SYSTOLIC BETWEEN 120-130 EMERGENCY INSTRUCTIONS: THE PATIENT WAS INSTRUCTED TO PRESENT TO THE NEAREST EMERGENCY DEPARTMENT OR CALL 911 SHOULD THEIR SYMPTOMS RETURN OR WORSEN. Home Medications: Active Scripts Metoprolol Succinate (Toprol Xl) 25 Mg Tab.er.24h, 25 MG PO DAILY, #30 TAB 3 Refills Prov:SUKHJINDER MAR MD 05/08/25 Reported Medications Rosuvastatin Calcium (Rosuvastatin Calcium) 40 Mg Tablet, 1 TAB PO DAILY for high cholesterol for 30 Days, #30 TAB 0 Refills 05/01/25 Ranolazine (Ranolazine ER) 500 Mg Tab.er.12h, 1 TAB PO BID for 30 Days, #60 TAB 0 Refills 05/01/25 Valacyclovir HCl (Valacyclovir) 1,000 Mg Tablet, 1 TAB PO TID for 7 Days, #21 TAB 0 Refills 05/01/25 Clopidogrel Bisulfate (Plavix) 75 Mg Tablet, 75 MG PO DAILY, TAB 12/09/17 Aspirin (ASPIRIN 81 MG ECTAB) 81 Mg Ectab, 81 MG PO DAILY, TAB.EC 12/09/17 Discontinued Reported Medications Metoprolol Tartrate (Metoprolol Tartrate) 25 Mg Tablet, 25 MG PO DAILY, TAB 12/09/17 Losartan Potassium (Losartan Potassium) 25 Mg Tablet, 1 TAB PO DAILY for 30 Days, #30 TAB 0 Refills 05/01/25 Atorvastatin Calcium (LIPITOR) 20 Mg Tab, 20 MG PO HS, TAB 12/09/17 Discontinued Scripts [Nitroglycerin 0.4MG Sl Tab] 0.4 MG TAB.SUBL No Conflict Check, 0.4 MG SL q5min prn PRN for CHEST PAIN, #15 0 Refills Prov:TONNY DAVID MD 12/09/17 Metoprolol Tartrate (Lopressor) 25 Mg Tab, 25 MG PO BID, #60 TAB Prov:TONNY DAVID MD 12/09/17 Clopidogrel Bisulfate (Plavix) 75 Mg Tablet, 75 MG PO DAILY, #60 TAB Prov:TONNY DAVID MD 12/09/17 Atorvastatin Calcium (Atorvastatin Calcium) 20 Mg Tablet, 20 MG PO HS, #60 TAB Prov:TONNY DAVID MD 12/09/17 Aspirin (ASPIRIN 81MG CHEW TAB) 81 Mg Tab.chew, 81 MG PO DAILY, #60 TAB.CHEW Prov:TONNY DAVID MD 12/09/17 Continued Medications: Aspirin (Aspirin 81 Mg Ectab) 81 Mg Ectab 81 MG PO DAILY, TAB.EC Clopidogrel Bisulfate (Plavix) 75 Mg Tablet 75 MG PO DAILY, TAB Metoprolol Tartrate (Metoprolol Tartrate) 25 Mg Tablet 25 MG PO DAILY, TAB Ranolazine (Ranolazine ER) 500 Mg Tab.er.12h 1 TAB PO BID for 30 Days, #60 TAB 0 Refills Rosuvastatin Calcium (Rosuvastatin Calcium) 40 Mg Tablet 1 TAB PO DAILY for high cholesterol for 30 Days, #30 TAB 0 Refills Valacyclovir HCl (Valacyclovir) 1,000 Mg Tablet 1 TAB PO TID for 7 Days, #21 TAB 0 Refills Discontinued Medications: Losartan Potassium (Losartan Potassium) 25 Mg Tablet 1 TAB PO DAILY for 30 Days, #30 TAB 0 Refills Time spent arranging discharge: 31-60 minutes ATTESTATION BY PHYSICIAN I have seen and examined the patient. I reviewed the documentation, medical decision making, and treatment plan as noted by the mid-level provider above. I agree with the findings and plan of care. RICARDO VALE MD, ELIZABETH NP May 03, 2025 12:37
--- NOTE | 2025-05-03 12:37 | PN ---
[facility] CARDIOLOGY PROGRESS NOTE Date Patient Seen: May 03, 2025 Time of Visit: 12:34 Interval History: [no acute events overnight m the patient is currenttly undergoing lexiscan stress test ] Physical Examination: GENERAL: [No acute distress.] HEAD: [Normal with no signs of head trauma.] EYES: [PERRLA, EOMI, conjunctiva and sclera normal.] ENT: [Hearing grossly intact, normal oropharynx.] NECK: [Supple without JVD. There is no tenderness, lymphadenopathy, or masses. No thyromegaly. Normal carotid upstrokes without bruits.] LUNGS: [Clear breath sounds bilaterally. There are right basilar rales one third of the way up the chest. No wheezes, or rhonchi.] HEART: [Normal rate and rhythm. Normal S1 and S2 without mumurs, gallop or rub.] VASC: [Peripheral pulses +2 bilaterally.] ABD: [Bowel sounds normal, soft, nontender, no masses, no organomegaly. No audible bruits.] : [Not examined] LYMPH: [No lymphadenopathy noted.] EXT: [No clubbing, cyanosis or edema.] SKIN: [No rashes or lesions noted.] NEURO: [Awake, alert, and oriented x3. No focal sensory or strength deficits noted.] Laboratory: [ ] Hematology Labs: Test 05/03/25 10:13 Range/Units White Blood Count 6.5 4.8-10.8 K/uL Red Blood Count 4.68 4.50-6.20 MIL/uL Hemoglobin 14.1 14.0-18.0 g/dL Hematocrit 42.3 42-54 % Mean Corpuscular Volume 90.4 79-99 fL Mean Corpuscular Hemoglobin 30.1 27.0-33.0 pg Mean Corpuscular Hemoglobin Concent 33.3 32.0-36.0 g/dL Red Cell Distribution Width 13.5 11.0-15.5 % Platelet Count 279 130-400 K/uL Mean Platelet Volume 8.9 7.5-10.5 fL Immature Granulocyte % (Auto) 0.3 0-1 % Neutrophils (%) (Auto) 56.1 40.0-77.0 % Lymphocytes (%) (Auto) 32.4 21.0-51.0 % Monocytes (%) (Auto) 8.6 3.0-13.0 % Eosinophils (%) (Auto) 2.3 0.0-8.0 % Basophils (%) (Auto) 0.3 0.0-5.0 % Neutrophils # (Auto) 3.7 1.8-7.7 K/uL Lymphocytes # (Auto) 2.1 1.0-4.8 K/uL Monocytes # (Auto) 0.6 0.1-1.0 K/uL Eosinophils # (Auto) 0.15 0.00-0.70 K/uL Basophils # (Auto) 0.02 0.00-0.20 K/uL Absolute Immature Granulocyte (auto 0.02 0-1 K/uL Nucleated Red Blood Cells 0.0 0.0-0.19 % Chemistry Labs: Test 05/03/25 10:13 05/01/25 14:16 Range/Units Sodium Level 134 L 136-145 mmol/L Potassium Level 4.0 3.5-5.1 mmol/L Chloride Level 97 L 101-111 mmol/L Carbon Dioxide Level 29 21-32 mmol/L Blood Urea Nitrogen 17 7-18 mg/dL Creatinine 0.8 0.5-1.3 mg/dL Glomerular Filtration Rate Calc 107 >90 mL/min Random Glucose 101 70-105 mg/dL Total Calcium 9.2 8.5-10.1 mg/dL Magnesium Level 2.20 1.80-2.40 mg/dL Total Bilirubin 1.3 H 0.2-1.0 mg/dL Aspartate Amino Transf (AST/SGOT) 11 10-37 U/L Alanine Aminotransferase (ALT/SGPT) 37 12-78 U/L Alkaline Phosphatase 71 50-136 U/L Total Protein 7.8 6.0-8.3 g/dL Albumin 3.9 3.5-5.0 g/dL Troponin I High Sensitivity 5 4-75 ng/L Coagulation Labs: Test 05/01/25 14:16 Range/Units D-Dimer Quantitative (PE/DVT) 285 0-500 ng/mL Diagnostics / Radiology: [Copy/Paste Echos/Imaging Report here] Impression and Plan: [ Atypical chest pain Hypertension Hyperlipidemia CAD s/p CABG x3 (BURGESS-LAD, SVG-PDA, and SVG-OM1) in 10/17/[address] Ingrid Ulrich [facility]/coronary angiogram on 12/08/2017 demonstrated a patent BURGESS graft to the LAD, a completely occluded SVG to the OM1, and a patent SVG to the distal RCA, s/p PTCA/stent to the ostial OM with a 3.0 x 8 mm drug-eluting stent, a 3.0 x 12 mm stent to the mid LAD and a 3.0 x 23 mm stent to the proximal circumflex artery Lexiscan stress test on 04/18/2021 with moderate inferior ischemia of moderate size Subsequent C/coronary angiogram on 05/26/2021 demonstrated a patent BURGESS graft to the LAD, an occluded SVG to OM, an occluded SVG to RCA, and multiple lesions in LCx LVEF of 42% with mild septal hypokinesia via 2D Echo on 05/27/2021 History of meth and cocaine use Noncompliance Atypical chest pain Troponin are negative x3 EKG demonstrated NSR with a hr of 77bpm, QTc 418, and TWI in the inferior leads similar to EKG on 08/25/2021 -Resume Aspirin 81m daily, Atorvastatin 40mg nightly, Metoprolol succinate 25mg daily, and Ranexa -Hold Losartan 25mg daily due to marginal blood pressure -2D Echo LV function with drop in LVEF to 35-40%, ordered lexiscan #[id number] ICM - 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 MD JAYLEN Price JAMES R MD May 03, 2025 12:37
--- NOTE | 2025-05-03 13:01 | HMCSR ---
APPROVED REPORT Height: 5 ft 9in Weight: 173 lbs TEST INDICATIONS HEART FAILURE The imaging protocol used to acquire images was Rest Tc-99m/stress Tc-99m 1 day Consent: The procedure was explained and understood by the patient. Informerd consent was witnessed Beba Ulrich RN First, low dose rest was performed then high dose stress. RESTING DATA: The resting ekg shows: NSR Rest SPECT myocardial perfusion imaging was performed in supine position minutes following the intra venous injection of 10 mCi of Tc-99 Sestamibi. Time of rest injection: 07:45: Date: 05/03/2025 PHARMACOLOGIC STRESS: Pharmacologic stress test was performed by injecting regadenoson 0.4 mg IV push followed by the intra venous injection of 28 mCi of Tc-99 Sestamibi. Time of stress injection: 09:27: Date: 05/03/2025 Heart Rate at time of stress injection: 57 bpm. Gated Stress SPECT was performed 60 minutes after stress injection. The images were gated to evaluate regional wall motion and calculate left ventricular ejection fracti on. STRESS DETAILS Reason for Termination: Infusion complete Stress Symptoms: Dyspnea Max HR Achieved: 93 bpm % of APMHR Achieved: 65 Max Blood Pressure: 100/66 mmHg Stress ECG: NSR Study quality was good. Lung uptake was Normal. Artifact: No artifact IMPRESSION Abnormal pharmacologic nuclear stress test. Conclusion Medium sized partially reversible defect in the inferolateral wall. TID 1.01. LVEF 46%.
[2025-05-03 16:00] VITALS: BP 102/63; PULSE 62; RESP 16; TEMP 97.7
[2025-05-03 20:00] VITALS: BP 125/69; PULSE 63; RESP 20; TEMP 98.1; O2SAT 96
[2025-05-04] VITALS (9 sets, daily range): BP systolic 96–122; BP diastolic 52–70; PULSE 50–66; RESP 16–20; TEMP 97.5–97.9; O2SAT 98
--- NOTE | 2025-05-04 07:15 | PN ---
[facility] CARDIOLOGY PROGRESS NOTE Date Patient Seen: May 04, 2025 Time of Visit: 07:15 Interval History: [no acute events overnight ] Physical Examination: GENERAL: [No acute distress.] HEAD: [Normal with no signs of head trauma.] EYES: [PERRLA, EOMI, conjunctiva and sclera normal.] ENT: [Hearing grossly intact, normal oropharynx.] NECK: [Supple without JVD. There is no tenderness, lymphadenopathy, or masses. No thyromegaly. Normal carotid upstrokes without bruits.] LUNGS: [Clear breath sounds bilaterally. There are right basilar rales one third of the way up the chest. No wheezes, or rhonchi.] HEART: [Normal rate and rhythm. Normal S1 and S2 without mumurs, gallop or rub.] VASC: [Peripheral pulses +2 bilaterally.] ABD: [Bowel sounds normal, soft, nontender, no masses, no organomegaly. No audible bruits.] : [Not examined] LYMPH: [No lymphadenopathy noted.] EXT: [No clubbing, cyanosis or edema.] SKIN: [No rashes or lesions noted.] NEURO: [Awake, alert, and oriented x3. No focal sensory or strength deficits noted.] Laboratory: [ ] Hematology Labs: Test 05/03/25 10:13 Range/Units White Blood Count 6.5 4.8-10.8 K/uL Red Blood Count 4.68 4.50-6.20 MIL/uL Hemoglobin 14.1 14.0-18.0 g/dL Hematocrit 42.3 42-54 % Mean Corpuscular Volume 90.4 79-99 fL Mean Corpuscular Hemoglobin 30.1 27.0-33.0 pg Mean Corpuscular Hemoglobin Concent 33.3 32.0-36.0 g/dL Red Cell Distribution Width 13.5 11.0-15.5 % Platelet Count 279 130-400 K/uL Mean Platelet Volume 8.9 7.5-10.5 fL Immature Granulocyte % (Auto) 0.3 0-1 % Neutrophils (%) (Auto) 56.1 40.0-77.0 % Lymphocytes (%) (Auto) 32.4 21.0-51.0 % Monocytes (%) (Auto) 8.6 3.0-13.0 % Eosinophils (%) (Auto) 2.3 0.0-8.0 % Basophils (%) (Auto) 0.3 0.0-5.0 % Neutrophils # (Auto) 3.7 1.8-7.7 K/uL Lymphocytes # (Auto) 2.1 1.0-4.8 K/uL Monocytes # (Auto) 0.6 0.1-1.0 K/uL Eosinophils # (Auto) 0.15 0.00-0.70 K/uL Basophils # (Auto) 0.02 0.00-0.20 K/uL Absolute Immature Granulocyte (auto 0.02 0-1 K/uL Nucleated Red Blood Cells 0.0 0.0-0.19 % Chemistry Labs: Test 05/03/25 10:13 Range/Units Sodium Level 134 L 136-145 mmol/L Potassium Level 4.0 3.5-5.1 mmol/L Chloride Level 97 L 101-111 mmol/L Carbon Dioxide Level 29 21-32 mmol/L Blood Urea Nitrogen 17 7-18 mg/dL Creatinine 0.8 0.5-1.3 mg/dL Glomerular Filtration Rate Calc 107 >90 mL/min Random Glucose 101 70-105 mg/dL Total Calcium 9.2 8.5-10.1 mg/dL Magnesium Level 2.20 1.80-2.40 mg/dL Total Bilirubin 1.3 H 0.2-1.0 mg/dL Aspartate Amino Transf (AST/SGOT) 11 10-37 U/L Alanine Aminotransferase (ALT/SGPT) 37 12-78 U/L Alkaline Phosphatase 71 50-136 U/L Total Protein 7.8 6.0-8.3 g/dL Albumin 3.9 3.5-5.0 g/dL Diagnostics / Radiology: [Copy/Paste Echos/Imaging Report here] Impression and Plan: [ Atypical chest pain Hypertension Hyperlipidemia CAD s/p CABG x3 (BURGESS-LAD, SVG-PDA, and SVG-OM1) in 10/17/[address] Ingrid Ulrich [facility]/coronary angiogram on 12/08/2017 demonstrated a patent BURGESS graft to the LAD, a completely occluded SVG to the OM1, and a patent SVG to the distal RCA, s/p PTCA/stent to the ostial OM with a 3.0 x 8 mm drug-eluting stent, a 3.0 x 12 mm stent to the mid LAD and a 3.0 x 23 mm stent to the proximal circumflex artery Lexiscan stress test on 04/18/2021 with moderate inferior ischemia of moderate size Subsequent LHC/coronary angiogram on 05/26/2021 demonstrated a patent BURGESS graft to the LAD, an occluded SVG to OM, an occluded SVG to RCA, and multiple lesions in LCx LVEF of 42% with mild septal hypokinesia via 2D Echo on 05/27/2021 History of meth and cocaine use Noncompliance Atypical chest pain Troponin are negative x3 EKG demonstrated NSR with a hr of 77bpm, QTc 418, and TWI in the inferior leads similar to EKG on 08/25/2021 -Resume Aspirin 81m daily, Atorvastatin 40mg nightly, Metoprolol succinate 25mg daily, and Ranexa -Hold Losartan 25mg daily due to marginal blood pressure -2D Echo LV function with drop in LVEF to 35-40% Lexiscan with partial reversibility of the inferolateral wall, ordered CCTA for CABG patency #HFmrEF ICM - LVEF 35-40%- NYHA II History of CABG Compensated and euvolemic on exam strict Is and Os with daily weights Optimize GDMT toprol 25 mg daily , Currently undergoing lexiscan stress test , pending results AVERY YORK MD May 04, 2025 07:15
[2025-05-04] MEDS ORDERED: IOHEXOL 350 MG/ML 100ML INFUS..BTL IV ONE (11:07)
[2025-05-05] VITALS (8 sets, daily range): BP systolic 102–120; BP diastolic 60–74; PULSE 54–62; RESP 16–20; TEMP 97.7–98.4; O2SAT 97–98
--- NOTE | 2025-05-05 08:33 | CARDIOLOGY ---
RAD REPORT: [facility] CT ANGIO RADIOLOGY REPORT: CORONARY CT ANGIOGRAPHY DATE: May 05, 2025 QUALITY: Excellent CLINICAL HISTORY AND INDICATION: [ chest pain, abormal stress test, CABG patency ] TECHNIQUE: After obtaining a preliminary patrol sergeant image, contrast imaging performed on an Aquillon [id number] scanner. A dedicated, limited window, coronary imaging protocol was used, with single breath-hold, retrospective ECG gating, and automated arrhythmia rejection. 100 cc of low osmolar contrast agent: Omnipaque 350 was delivered via a 18-gauge IV catheter in the right antecubital fossa, using a power injector and followed by 60 cc of normal saline bolus as a chaser. Collimated images were reformatted at 0.5 mm intervals, and sent to an offline independent workstation for interpretation, using 3D anatomic reconstructions: Curved multiplanar reconstructions, maximum intensity projections, and multiplanar imaging. No metoprolol was administered prior to scanning due to low baseline heart rate. 0.4 mg SL nitroglycerin was given. CORONARY ARTERY DESCRIPTIONS: The coronary arteries arise in normal position. Left main coronary artery: Normal caliber vessel that bifurcates into the LAD and LCx. Severe distal left main stenosis. Left anterior descending coronary artery: Normal caliber vessel and gives rise to diagonal and septal branches. Severe stenosis of the ostial to mid segments. Left circumflex coronary artery: Normal caliber, nondominant and gives rise to two OM branches. Severe stenosis of the LCx, however, due to motion artifact not able to quantitate luminal stenosis. Right coronary artery: Large, dominant vessel giving rise to the PL and PDA branches. Due motion artifact of the RCA, not able to quantitate for luminal stenosis. BURGESS to LAD with motion artifact at anastomosis site and distal BURGESS, not able to quantitate luminal stenosis. Occluded SVG to RCA. Occluded SVG to OM. Thoracic Aorta: Normal diameter. Nancy Velasquez MD Cardiovascular Disease [facility] NANCY VELASQUEZ MD May 05, 2025 08:33
--- NOTE | 2025-05-05 12:22 | PN ---
[facility] CARDIOLOGY PROGRESS NOTE Date Patient Seen: May 05, 2025 Time of Visit: 12:20 Interval History: [no acute events overnight ] Physical Examination: GENERAL: [No acute distress.] HEAD: [Normal with no signs of head trauma.] EYES: [PERRLA, EOMI, conjunctiva and sclera normal.] ENT: [Hearing grossly intact, normal oropharynx.] NECK: [Supple without JVD. There is no tenderness, lymphadenopathy, or masses. No thyromegaly. Normal carotid upstrokes without bruits.] LUNGS: [Clear breath sounds bilaterally. There are right basilar rales one third of the way up the chest. No wheezes, or rhonchi.] HEART: [Normal rate and rhythm. Normal S1 and S2 without mumurs, gallop or rub.] VASC: [Peripheral pulses +2 bilaterally.] ABD: [Bowel sounds normal, soft, nontender, no masses, no organomegaly. No audible bruits.] : [Not examined] LYMPH: [No lymphadenopathy noted.] EXT: [No clubbing, cyanosis or edema.] SKIN: [No rashes or lesions noted.] NEURO: [Awake, alert, and oriented x3. No focal sensory or strength deficits noted.] Laboratory: [ ] Diagnostics / Radiology: [Copy/Paste Echos/Imaging Report here] Impression and Plan: [ chest pain Hypertension Hyperlipidemia CAD s/p CABG x3 (BURGESS-LAD, SVG-PDA, and SVG-OM1) in 10/17/[address] Ingrid Ulrich [facility]/coronary angiogram on 12/08/2017 demonstrated a patent BURGESS graft to the LAD, a completely occluded SVG to the OM1, and a patent SVG to the distal RCA, s/p PTCA/stent to the ostial OM with a 3.0 x 8 mm drug-eluting stent, a 3.0 x 12 mm stent to the mid LAD and a 3.0 x 23 mm stent to the proximal circumflex artery Lexiscan stress test on 04/18/2021 with moderate inferior ischemia of moderate size Subsequent [facility]/coronary angiogram on 05/26/2021 demonstrated a patent BURGESS graft to the LAD, an occluded SVG to OM, an occluded SVG to RCA, and multiple lesions in LCx LVEF of 42% with mild septal hypokinesia via 2D Echo on 05/27/2021 History of meth and cocaine use Noncompliance # chest pain Troponin are negative x3 EKG demonstrated NSR with a hr of 77bpm, QTc 418, and TWI in the inferior leads similar to EKG on 08/25/2021 -Resume Aspirin 81m daily, Atorvastatin 40mg nightly, Metoprolol succinate 25mg daily, and Ranexa -Hold Losartan 25mg daily due to marginal blood pressure -2D Echo LV function with drop in LVEF to 35-40% Lexiscan with partial reversibility of the inferolateral wall, ordered CCTA for CABG patency-->due to motion artifact, lumina stenosis of BURGESS to LAD and lummi coronary arteries are not quantitated accurately, given drop in LVEF and angina, recommend [facility] Wednesday #Mild systolic heart failure ICM - LVEF 35-40%- NYHA II History of CABG Compensated and euvolemic on exam strict Is and Os with daily weights Optimize GDMT toprol 25 mg daily AVERY YORK MD May 05, 2025 12:22
[2025-05-06] VITALS (7 sets, daily range): BP systolic 97–122; BP diastolic 64–72; PULSE 56–68; RESP 16–20; TEMP 97.3–98.3; O2SAT 95–98
--- NOTE | 2025-05-06 06:57 | PN ---
[facility] PROGRESS NOTE Date of Service: May 06, 2025 Time of Service: 06:53 SUBJECTIVE: [ ] Patient came to the emergency department with a chief complaint of shortness of breaths. Onset was 04/30/2025 noon. Location is to lungs. Duration is on and off. Character is described as, "like I do not get enough air. "There was no alleviating factors. Symptoms are aggravated with physical activity. Patient reports associated chest pain like tightness across both sides of his chest. Today in the emergency department CBC unremarkable, chemistry unremarkable, chest x-ray unremarkable, troponin unremarkable, no urinalysis has been collect ed or sent to lab. Emergency room physician recommended that patient be admitted with a diagnosis of chest pain. 05/02/25 patient is lying in bed patient denies chest pain. Patient waiting for echo primary nurse notify printing technician. 05/03/25 patient is seen and examined patient had a drop in LVEF to 35-40%, director clinical pharmacology's scheduled lexiscan today. No chest pain events overnight. We will continue to follow director clinical pharmacology's recommendations possible discharge if no further intervention per director clinical pharmacology's. Late entry: 05/04/25 The patient will have a Cornary CT today given to abnormal lexiscan . the patient no episodes of chest pain. we will wait for results and further intervention per director clinical pharmacology. REVIEW OF SYSTEMS CONSTITUTIONAL: Denies fevers, chills, or night sweats. No unintentional weight loss reported. NEUROLOGICAL: Denies headache, amaurosis fugax, motor weakness, sensory deficit, vertigo/spinning sensation, gait abnormalities, or tremors. ENT: No hearing loss, otalgia, otorrhea, rhinitis, rhinorrhea, hoarseness, or sore throat. CARDIOVASCULAR: Denies any exertional angina, dyspnea on exertion, orthopnea, paroxysmal nocturnal dyspnea, palpitations, life-threatening arrhythmias, claudication. PULMONARY: Denies any shortness of breath, cough, phlegm/sputum, hemoptysis, pleuritic chest pain. SLEEP: Denies morning headaches, daytime somnolence or napping. Denies difficulty falling asleep, staying asleep, waking from sleep. Denies knowledge of snoring. GASTROINTESTINAL: Denies any type of dysphagia to either liquids or solids. Denies nausea, vomiting, pyrosis, early satiety, abdominal pain, diarrhea, constipation, or changes in stool consistency or caliber. Denies coffee-ground emesis, hematemesis, hematochezia, or melanotic stools. GENITOURINARY: Denies frequency, urgency, nocturia, hematuria or incontinence (Storage/Irritative symptoms.) Low urinary stream, straining to void, urinary intermittency or hesitancy, splitting of the voiding stream, terminal dribbling. ENDOCRINOLOGIC: Denies polyuria, polydipsia, polyphagia or heat/cold intolerances. HEMATOLOGIC: Denies thrombophilia/previous clots, or coagulopathy/bleeding disorders. ONCOLOGIC: Denies personal history of malignancy. DERMATOLOGIC: Denies rashes or pruritus. PSYCHIATRIC: Denies any suicidal or homicidal ideation. Denies hallucinations. PHYSICAL EXAM GENERAL APPEARANCE: The patient is awake, alert, and oriented, in no acute cardiopulmonary distress. NEUROLOGICAL: Cranial nerves II-XII grossly intact. Motor is 5/5 in bilateral upper and lower extremities proximal to distal. No sensory deficits. HEENT: Face is symmetric. Pupils are equal and reactive. Extraocular movements are intact. NECK: Supple. No JVD. No thyromegaly. No submental, submandibular, pre-/postauricular, occipital or supraclavicular lymphadenopathy. CHEST: Normal chest expansion. No Telemetry. LUNGS: Absence of any rales, rhonchi or any wheezing. CARDIOVASCULAR: Regular. S1 and S2 normal. No appreciable rubs, murmurs or gallops. ABDOMEN: Soft, nontender, and nondistended. There is no rebound, voluntary guarding, or rigidity. : Deferred. No Call. EXTREMITIES: Non-edematous and not cyanotic. No clubbing. Good capillary refill. SKIN: No skin breakdown. Vital Signs (last 8hr) Date Time Temp Pulse Resp B/P (MAP) Pulse Ox O2 Delivery O2 Flow Rate FiO2 05/06/25 03:46 98.2 56 16 97/66 95 Room Air 05/05/25 23:38 97.9 54 16 120/74 97 Room Air LABS: Current Medications Medications (Trade) Dose Ordered Sig/Jonh Route PRN Reason Start Time Stop Time Status Last Admin Dose Admin Acetaminophen (TYLenol 325MG TAB) 650 mg Q6H PRN PO TEMPERATURE GREATER THAN 101.5 05/01/25 00:30 05/31/25 00:29 Aspirin (Aspirin 81mg Ec Tab) 81 mg DAILY PO 05/01/25 09:00 05/31/25 08:59 05/05/25 09:11 81 MG Atorvastatin Calcium (LIPItor 40MG) 40 mg HS PO 05/01/25 21:00 05/31/25 20:59 05/05/25 21:05 40 MG Enoxaparin Sodium (Lovenox) 40 mg DAILY SQ 05/01/25 09:00 05/31/25 08:59 05/05/25 09:12 40 MG Famotidine (Pepcid 20mg Tab) 20 mg DAILY PO 05/01/25 09:00 05/31/25 08:59 05/05/25 09:11 20 MG Hydralazine HCl (APRESOLine 20MG INJ) 10 mg Q6H PRN IV For:SBP above 160;DBP above 90 05/01/25 00:30 05/31/25 00:29 Hydrocortisone (corTRIsone 1% CREAM) 1 APPLICATION BID PRN TP RASH 05/04/25 14:00 06/03/25 13:59 05/04/25 15:41 1 APPL Lactulose (Constulose 20gm/ 30ml Udcup) 20 gm BID PRN PO CONSTIPATION 05/01/25 00:30 05/31/25 00:29 Losartan Potassium (CozAAR 25MG TAB) 25 mg DAILY PO 05/02/25 09:00 05/01/25 17:58 DC Meloxicam (Mobic 7.5mg) 15 mg DAILY PO 05/01/25 18:00 05/31/25 17:59 05/05/25 09:11 15 MG Metoprolol Succinate (TopROL XL) 25 mg DAILY PO 05/01/25 15:00 05/04/25 07:32 DC 05/03/25 08:34 25 MG Morphine Sulfate (morPHINE 4MG SYG) 2 mg Q4H PRN IVP SEVERE PAIN (7-10) 05/01/25 00:30 05/06/25 03:29 DC 05/05/25 18:14 2 MG Nitroglycerin (Nitrostat) 0.4 mg AD PRN SL CHEST PAIN 04/30/25 23:30 05/01/25 00:15 DC Nitroglycerin (Nitrostat) 0.4 mg PROTOCOL PRN SL CHEST PAIN 05/01/25 00:30 05/31/25 00:29 Ondansetron HCl (zoFRAN 4MG INJ) 4 mg Q6H PRN IV NAUSEA/VOMITING 05/01/25 00:30 05/31/25 00:29 Ranolazine (Ranexa) 500 mg BID PO 05/01/25 21:00 05/31/25 20:59 05/05/25 21:05 500 MG DIAGNOSTICS / RADIOLOGY: [ ] dISCHARGED DX'S Atypical Chest pain, POA LEXISCAN suspecting musculoskeletal chest pain POA History of meth and cocaine use Noncompliance POA Hypertension Hyperlipidemia CAD] Acute on chronic systolic heart failure LVEF to 35-40%, PLAN: [ ] This is a 50-year-old with a significant medical history of CAD status post CABG x3 2008. Patient had a decrease in EF 35 to 40% patient is scheduled for a Lexiscan. Admit: medical with Tele condition: Guarded Status: Full code IVF: [facility] director clinical pharmacology's lexiscan noted: scheduled for CT angio continue with asa stati therapy Labs cbc, cmp, mag+ Replace electrolytes as needed as per protocol to keep potassium above 4.0 magnesium 2.0. Supportive measures: DVT ppx, GI ppx all questions answered Supervising MD: Dr. Vale C c/d ATTESTATION BY PHYSICIAN I have seen and examined the patient. I reviewed the documentation, medical decision making, and treatment plan as noted by the mid-level provider above. I agree with the findings and plan of care. RICARDO VALE MD, ELIZABETH NP May 06, 2025 06:57
--- NOTE | 2025-05-06 07:00 | PN ---
[facility] PROGRESS NOTE Date of Service: May 06, 2025 Time of Service: 06:57 SUBJECTIVE: [ ] Patient came to the emergency department with a chief complaint of shortness of breaths. Onset was 04/30/2025 noon. Location is to lungs. Duration is on and off. Character is described as, "like I do not get enough air. "There was no alleviating factors. Symptoms are aggravated with physical activity. Patient reports associated chest pain like tightness across both sides of his chest. Today in the emergency department CBC unremarkable, chemistry unremarkable, chest x-ray unremarkable, troponin unremarkable, no urinalysis has been collect ed or sent to lab. Emergency room physician recommended that patient be admitted with a diagnosis of chest pain. 05/02/25 patient is lying in bed patient denies chest pain. Patient waiting for echo primary nurse notify medical technologist chief. 05/03/25 patient is seen and examined patient had a drop in LVEF to 35-40%, skin fitter's scheduled lexiscan today. No chest pain events overnight. We will continue to follow skin fitter's recommendations possible discharge if no further intervention per skin fitter's. Late entry: 05/04/25 The patient will have a Cornary CT today given to abnormal lexiscan . the patient no episodes of chest pain. we will wait for results and further intervention per skin fitter. Late entry: 05/05/25 No discharged: Injection Mold Technician will plan LHC on Wednesday. No chest pain events over night. REVIEW OF SYSTEMS CONSTITUTIONAL: Denies fevers, chills, or night sweats. No unintentional weight loss reported. NEUROLOGICAL: Denies headache, amaurosis fugax, motor weakness, sensory deficit, vertigo/spinning sensation, gait abnormalities, or tremors. ENT: No hearing loss, otalgia, otorrhea, rhinitis, rhinorrhea, hoarseness, or sore throat. CARDIOVASCULAR: Denies any exertional angina, dyspnea on exertion, orthopnea, paroxysmal nocturnal dyspnea, palpitations, life-threatening arrhythmias, claudication. PULMONARY: Denies any shortness of breath, cough, phlegm/sputum, hemoptysis, pleuritic chest pain. SLEEP: Denies morning headaches, daytime somnolence or napping. Denies difficulty falling asleep, staying asleep, waking from sleep. Denies knowledge of snoring. GASTROINTESTINAL: Denies any type of dysphagia to either liquids or solids. Denies nausea, vomiting, pyrosis, early satiety, abdominal pain, diarrhea, constipation, or changes in stool consistency or caliber. Denies coffee-ground emesis, hematemesis, hematochezia, or melanotic stools. GENITOURINARY: Denies frequency, urgency, nocturia, hematuria or incontinence (Storage/Irritative symptoms.) Low urinary stream, straining to void, urinary intermittency or hesitancy, splitting of the voiding stream, terminal dribbling. ENDOCRINOLOGIC: Denies polyuria, polydipsia, polyphagia or heat/cold intolerances. HEMATOLOGIC: Denies thrombophilia/previous clots, or coagulopathy/bleeding di sorders. ONCOLOGIC: Denies personal history of malignancy. DERMATOLOGIC: Denies rashes or pruritus. PSYCHIATRIC: Denies any suicidal or homicidal ideation. Denies hallucinations. PHYSICAL EXAM GENERAL APPEARANCE: The patient is awake, alert, and oriented, in no acute cardiopulmonary distress. NEUROLOGICAL: Cranial nerves II-XII grossly intact. Motor is 5/5 in bilateral upper and lower extremities proximal to distal. No sensory deficits. HEENT: Face is symmetric. Pupils are equal and reactive. Extraocular movements are intact. NECK: Supple. No JVD. No thyromegaly. No submental, submandibular, pre- /postauricular, occipital or supraclavicular lymphadenopathy. CHEST: Normal chest expansion. No Telemetry. LUNGS: Absence of any rales, rhonchi or any wheezing. CARDIOVASCULAR: Regular. S1 and S2 normal. No appreciable rubs, murmurs or gallops. ABDOMEN: Soft, nontender, and nondistended. There is no rebound, voluntary guarding, or rigidity. : Deferred. No Call. EXTREMITIES: Non-edematous and not cyanotic. No clubbing. Good capillary refill. SKIN: No skin breakdown. Vital Signs (last 8hr) Date Time Temp Pulse Resp B/P (MAP) Pulse Ox O2 Delivery O2 Flow Rate FiO2 05/06/25 03:46 98.2 56 16 97/66 95 Room Air 05/05/25 23:38 97.9 54 16 120/74 97 Room Air LABS: Current Medications Medications (Trade) Dose Ordered Sig/Jonh Route PRN Reason Start Time Stop Time Status Last Admin Dose Admin Acetaminophen (TYLenol 325MG TAB) 650 mg Q6H PRN PO TEMPERATURE GREATER THAN 101.5 05/01/25 00:30 05/31/25 00:29 Aspirin (Aspirin 81mg Ec Tab) 81 mg DAILY PO 05/01/25 09:00 05/31/25 08:59 05/05/25 09:11 81 MG Atorvastatin Calcium (LIPItor 40MG) 40 mg HS PO 05/01/25 21:00 05/31/25 20:59 05/05/25 21:05 40 MG Enoxaparin Sodium (Lovenox) 40 mg DAILY SQ 05/01/25 09:00 05/31/25 08:59 05/05/25 09:12 40 MG Famotidine (Pepcid 20mg Tab) 20 mg DAILY PO 05/01/25 09:00 05/31/25 08:59 05/05/25 09:11 20 MG Hydralazine HCl (APRESOLine 20MG INJ) 10 mg Q6H PRN IV For:SBP above 160;DBP above 90 05/01/25 00:30 05/31/25 00:29 Hydrocortisone (corTRIsone 1% CREAM) 1 APPLICATION BID PRN TP RASH 05/04/25 14:00 06/03/25 13:59 05/04/25 15:41 1 APPL Lactulose (Constulose 20gm/ 30ml Udcup) 20 gm BID PRN PO CONSTIPATION 05/01/25 00:30 05/31/25 00:29 Losartan Potassium (CozAAR 25MG TAB) 25 mg DAILY PO 05/02/25 09:00 05/01/25 17:58 DC Meloxicam (Mobic 7.5mg) 15 mg DAILY PO 05/01/25 18:00 05/31/25 17:59 05/05/25 09:11 15 MG Metoprolol Succinate (TopROL XL) 25 mg DAILY PO 05/01/25 15:00 05/04/25 07:32 DC 05/03/25 08:34 25 MG Morphine Sulfate (morPHINE 4MG SYG) 2 mg Q4H PRN IVP SEVERE PAIN (7-10) 05/01/25 00:30 05/06/25 03:29 DC 05/05/25 18:14 2 MG Nitroglycerin (Nitrostat) 0.4 mg AD PRN SL CHEST PAIN 04/30/25 23:30 05/01/25 00:15 DC Nitroglycerin (Nitrostat) 0.4 mg PROTOCOL PRN SL CHEST PAIN 05/01/25 00:30 05/31/25 00:29 Ondansetron HCl (zoFRAN 4MG INJ) 4 mg Q6H PRN IV NAUSEA/VOMITING 05/01/25 00:30 05/31/25 00:29 Ranolazine (Ranexa) 500 mg BID PO 05/01/25 21:00 05/31/25 20:59 05/05/25 21:05 500 MG DIAGNOSTICS / RADIOLOGY: [ ] dISCHARGED DX'S Atypical Chest pain, POA LEXISCAN suspecting musculoskeletal chest pain POA History of meth and cocaine use Noncompliance POA Hypertension Hyperlipidemia CAD] Acute on chronic systolic heart failure LVEF to 35-40%, PLAN: [ ] This is a 50-year-old with a significant medical history of CAD status post CABG x3 2008. Patient had a decrease in EF 35 to 40% patient is scheduled for a Lexiscan. Admit: medical with Tele condition: Guarded Status: Full code IVF: [facility] skin fitter's Procedure: LHC on Wednesday: 05/07/25 contiue with Aspirin 81m daily, Atorvastatin 40mg nightly, Ranexa -Hold Losartan 25mg daily due to marginal blood pressure Labs cbc, cmp, mag+ Replace electrolytes as needed as per protocol to keep potassium above 4.0 magnesium 2.0. Supportive measures: DVT ppx, GI ppx all questions answered Supervising MD: Dr. Vale C c/d ATTESTATION BY PHYSICIAN I have seen and examined the patient. I reviewed the documentation, medical decision making, and treatment plan as noted by the mid-level provider above. I agree with the findings and plan of care. RICARDO VALE MD, ELIZABETH NP May 06, 2025 07:00
--- NOTE | 2025-05-06 07:00 | PN ---
[facility] PROGRESS NOTE Date of Service: May 06, 2025 Time of Service: 07:00 SUBJECTIVE: [ ] Patient came to the emergency department with a chief complaint of shortness of breaths. Onset was 04/30/2025 noon. Location is to lungs. Duration is on and off. Character is described as, "like I do not get enough air. "There was no alleviating factors. Symptoms are aggravated with physical activity. Patient reports associated chest pain like tightness across both sides of his chest. Today in the emergency department CBC unremarkable, chemistry unremarkable, chest x-ray unremarkable, troponin unremarkable, no urinalysis has been collect ed or sent to lab. Emergency room physician recommended that patient be admitted with a diagnosis of chest pain. 05/02/25 patient is lying in bed patient denies chest pain. Patient waiting for echo primary nurse notify chemical engineering technician. 05/03/25 patient is seen and examined patient had a drop in LVEF to 35-40%, paper tube grader's scheduled lexiscan today. No chest pain events overnight. We will continue to follow paper tube grader's recommendations possible discharge if no further intervention per paper tube grader's. Late entry: 05/04/25 The patient will have a Corn[facility] CT today given to abnormal lexiscan . the patient no episodes of chest pain. we will wait for results and further intervention per paper tube grader. Late entry: 05/05/25 No discharged: Radio Commentator will plan LHC on Wednesday. No chest pain events over night. 05/06/25 patient is fully awake alert oriented x3. Patient denied chest pain or shortness for breath left heart catheterization is scheduled for tomorrow. REVIEW OF SYSTEMS CONSTITUTIONAL: Denies fevers, chills, or night sweats. No unintentional weight loss reported. NEUROLOGICAL: Denies headache, amaurosis fugax, motor weakness, sensory deficit, vertigo/spinning sensation, gait abnormalities, or tremors. ENT: No hearing loss, otalgia, otorrhea, rhinitis, rhinorrhea, hoarseness, or sore throat. CARDIOVASCULAR: Denies any exertional angina, dyspnea on exertion, orthopnea, paroxysmal nocturnal dyspnea, palpitations, life-threatening arrhythmias, claudication. PULMONARY: Denies any shortness of breath, cough, phlegm/sputum, hemoptysis, pleuritic chest pain. SLEEP: Denies morning headaches, daytime somnolence or napping. Denies difficulty falling asleep, staying asleep, waking from sleep. Denies knowledge of snoring. GASTROINTESTINAL: Denies any type of dysphagia to either liquids or solids. Denies nausea, vomiting, pyrosis, early satiety, abdominal pain, diarrhea, constipation, or changes in stool consistency or caliber. Denies coffee-ground emesis, hematemesis, hematochezia, or melanotic stools. GENITOURINARY: Denies frequency, urgency, nocturia, hematuria or incontinence (Storage/Irritative symptoms.) Low urinary stream, straining to void, urinary intermittency or hesitancy, splitting of the voiding stream, terminal dribbling. ENDOCRINOLOGIC: Denies polyuria, polydipsia, polyphagia or heat/cold intolerances. HEMATOLOGIC: Denies thrombophilia/previous clots, or coagulopathy/bleeding disorders. ONCOLOGIC: Denies personal history of malignancy. DERMATOLOGIC: Denies rashes or pruritus. PSYCHIATRIC: Denies any suicidal or homicidal ideation. Denies hallucinations. PHYSICAL EXAM GENERAL APPEARANCE: The patient is awake, alert, and oriented, in no acute cardiopulmonary distress. NEUROLOGICAL: Cranial nerves II-XII grossly intact. Motor is 5/5 in bilateral upper and lower extremities proximal to distal. No sensory deficits. HEENT: Face is symmetric. Pupils are equal and reactive. Extraocular movements are intact. NECK: Supple. No JVD. No thyromegaly. No submental, submandibular, pre-/p ostauricular, occipital or supraclavicular lymphadenopathy. CHEST: Normal chest expansion. No Telemetry. LUNGS: Absence of any rales, rhonchi or any wheezing. CARDIOVASCULAR: Regular. S1 and S2 normal. No appreciable rubs, murmurs or gallops. ABDOMEN: Soft, nontender, and nondistended. There is no rebound, voluntary guarding, or rigidity. : Deferred. No Call. EXTREMITIES: Non-edematous and not cyanotic. No clubbing. Good capillary refill. SKIN: No skin breakdown. Vital Signs (last 8hr) Date Time Temp Pulse Resp B/P (MAP) Pulse Ox O2 Delivery O2 Flow Rate FiO2 05/06/25 03:46 98.2 56 16 97/66 95 Room Air 05/05/25 23:38 97.9 54 16 120/74 97 Room Air LABS: Current Medications Medications (Trade) Dose Ordered Sig/Jonh Route PRN Reason Start Time Stop Time Status Last Admin Dose Admin Acetaminophen (TYLenol 325MG TAB) 650 mg Q6H PRN PO TEMPERATURE GREATER THAN 101.5 05/01/25 00:30 05/31/25 00:29 Aspirin (Aspirin 81mg Ec Tab) 81 mg DAILY PO 05/01/25 09:00 05/31/25 08:59 05/05/25 09:11 81 MG Atorvastatin Calcium (LIPItor 40MG) 40 mg HS PO 05/01/25 21:00 05/31/25 20:59 05/05/25 21:05 40 MG Enoxaparin Sodium (Lovenox) 40 mg DAILY SQ 05/01/25 09:00 05/31/25 08:59 05/05/25 09:12 40 MG Famotidine (Pepcid 20mg Tab) 20 mg DAILY PO 05/01/25 09:00 05/31/25 08:59 05/05/25 09:11 20 MG Hydralazine HCl (APRESOLine 20MG INJ) 10 mg Q6H PRN IV For:SBP above 160;DBP above 90 05/01/25 00:30 05/31/25 00:29 Hydrocortisone (corTRIsone 1% CREAM) 1 APPLICATION BID PRN TP RASH 05/04/25 14:00 06/03/25 13:59 05/04/25 15:41 1 APPL Lactulose (Constulose 20gm/ 30ml Udcup) 20 gm BID PRN PO CONSTIPATION 05/01/25 00:30 05/31/25 00:29 Losartan Potassium (CozAAR 25MG TAB) 25 mg DAILY PO 05/02/25 09:00 05/01/25 17:58 DC Meloxicam (Mobic 7.5mg) 15 mg DAILY PO 05/01/25 18:00 05/31/25 17:59 05/05/25 09:11 15 MG Metoprolol Succinate (TopROL XL) 25 mg DAILY PO 05/01/25 15:00 05/04/25 07:32 DC 05/03/25 08:34 25 MG Morphine Sulfate (morPHINE 4MG SYG) 2 mg Q4H PRN IVP SEVERE PAIN (7-10) 05/01/25 00:30 05/06/25 03:29 DC 05/05/25 18:14 2 MG Nitroglycerin (Nitrostat) 0.4 mg AD PRN SL CHEST PAIN 04/30/25 23:30 05/01/25 00:15 DC Nitroglycerin (Nitrostat) 0.4 mg PROTOCOL PRN SL CHEST PAIN 05/01/25 00:30 05/31/25 00:29 Ondansetron HCl (zoFRAN 4MG INJ) 4 mg Q6H PRN IV NAUSEA/VOMITING 05/01/25 00:30 05/31/25 00:29 Ranolazine (Ranexa) 500 mg BID PO 05/01/25 21:00 05/31/25 20:59 05/05/25 21:05 500 MG DIAGNOSTICS / RADIOLOGY: [ ] dISCHARGED DX'S Atypical Chest pain, POA LEXISCAN suspecting musculoskeletal chest pain POA History of meth and cocaine use Noncompliance POA Hypertension Hyperlipidemia CAD] Acute on chronic systolic heart failure LVEF to 35-40%, PLAN: [ ] This is a 50-year-old with a significant medical history of CAD status post CABG x3 2008. Patient had a decrease in EF 35 to 40% patient is scheduled for a Lexiscan. Admit: medical with Tele condition: Guarded Status: Full code IVF: [facility] paper tube grader's Procedure: LHC on Wednesday: 05/07/25 contiue with Aspirin 81m daily, Atorvastatin 40mg nightly, Ranexa -Hold Losartan 25mg daily due to marginal blood pressure Labs cbc, cmp, mag+ Replace electrolytes as needed as per protocol to keep potassium above 4.0 magnesium 2.0. Supportive measures: DVT ppx, GI ppx all questions answered Supervising MD: Dr. Vale C c/d ATTESTATION BY PHYSICIAN I have seen and examined the patient. I reviewed the documentation, medical decision making, and treatment plan as noted by the mid-level provider above. I agree with the findings and plan of care. RICARDO VALE MD, ELIZABETH NP May 06, 2025 07:00
[2025-05-06 07:20] LABS: IMMATURE GRANULOCYTE ABSOLUTE 0.01 K/uL (0-1); NUCLEATED RED BLOOD CELLS 0.0 % (0.0-0.19); PLATELET COUNT (AUTO) 280 K/uL (130-400); RED BLOOD CELL COUNT(AUTO) 4.52 MIL/uL (4.50-6.20); RED CELL DISTRIBUTION WIDTH 13.4 % (11.0-15.5); WHITE BLOOD COUNT (AUTO) 6.0 K/uL (4.8-10.8)
[2025-05-06 07:42] LABS: ASPARTATE AMINOTRANSFERASE 12.0 U/L (10-37); CREATININE 0.9 mg/dL (0.5-1.3); GLOMERULAR FILTR. RATE CALC 103.0 mL/min (>90); GLUCOSE,RANDOM 100.0 mg/dL (70-105); SODIUM SERUM 140.0 mmol/L (136-145); TOTAL PROTEIN, SERUM 7.4 g/dL (6.0-8.3); UREA NITROGEN, BLOOD 18.0 mg/dL (7-18)
--- NOTE | 2025-05-06 08:36 | PN ---
[facility] CARDIOLOGY PROGRESS NOTE Date Patient Seen: May 06, 2025 Time of Visit: 08:35 Interval History: [no acute events overnight ] Physical Examination: GENERAL: [No acute distress.] HEAD: [Normal with no signs of head trauma.] EYES: [PERRLA, EOMI, conjunctiva and sclera normal.] ENT: [Hearing grossly intact, normal oropharynx.] NECK: [Supple without JVD. There is no tenderness, lymphadenopathy, or masses. No thyromegaly. Normal carotid upstrokes without bruits.] LUNGS: [Clear breath sounds bilaterally. There are right basilar rales one third of the way up the chest. No wheezes, or rhonchi.] HEART: [Normal rate and rhythm. Normal S1 and S2 without mumurs, gallop or rub.] VASC: [Peripheral pulses +2 bilaterally.] ABD: [Bowel sounds normal, soft, nontender, no masses, no organomegaly. No audible bruits.] : [Not examined] LYMPH: [No lymphadenopathy noted.] EXT: [No clubbing, cyanosis or edema.] SKIN: [No rashes or lesions noted.] NEURO: [Awake, alert, and oriented x3. No focal sensory or strength deficits noted.] Laboratory: [ ] Hematology Labs: Test 05/06/25 07:13 Range/Units White Blood Count 6.0 4.8-10.8 K/uL Red Blood Count 4.52 4.50-6.20 MIL/uL Hemoglobin 13.8 L 14.0-18.0 g/dL Hematocrit 40.4 L 42-54 % Mean Corpuscular Volume 89.4 79-99 fL Mean Corpuscular Hemoglobin 30.5 27.0-33.0 pg Mean Corpuscular Hemoglobin Concent 34.2 32.0-36.0 g/dL Red Cell Distribution Width 13.4 11.0-15.5 % Platelet Count 280 130-400 K/uL Mean Platelet Volume 8.7 7.5-10.5 fL Immature Granulocyte % (Auto) 0.2 0-1 % Neutrophils (%) (Auto) 53.4 40.0-77.0 % Lymphocytes (%) (Auto) 35.4 21.0-51.0 % Monocytes (%) (Auto) 7.6 3.0-13.0 % Eosinophils (%) (Auto) 3.1 0.0-8.0 % Basophils (%) (Auto) 0.3 0.0-5.0 % Neutrophils # (Auto) 3.2 1.8-7.7 K/uL Lymphocytes # (Auto) 2.1 1.0-4.8 K/uL Monocytes # (Auto) 0.5 0.1-1.0 K/uL Eosinophils # (Auto) 0.19 0.00-0.70 K/uL Basophils # (Auto) 0.02 0.00-0.20 K/uL Absolute Immature Granulocyte (auto 0.01 0-1 K/uL Nucleated Red Blood Cells 0.0 0.0-0.19 % Chemistry Labs: Test 05/06/25 07:13 Range/Units Sodium Level 140 136-145 mmol/L Potassium Level 4.4 3.5-5.1 mmol/L Chloride Level 103 101-111 mmol/L Carbon Dioxide Level 33 H 21-32 mmol/L Blood Urea Nitrogen 18 7-18 mg/dL Creatinine 0.9 0.5-1.3 mg/dL Glomerular Filtration Rate Calc 103 >90 mL/min Random Glucose 100 70-105 mg/dL Total Calcium 8.9 8.5-10.1 mg/dL Magnesium Level 2.10 1.80-2.40 mg/dL Total Bilirubin 0.7 0.2-1.0 mg/dL Aspartate Amino Transf (AST/SGOT) 12 10-37 U/L Alanine Aminotransferase (ALT/SGPT) 29 12-78 U/L Alkaline Phosphatase 70 50-136 U/L Total Protein 7.4 6.0-8.3 g/dL Albumin 3.7 3.5-5.0 g/dL Diagnostics / Radiology: [Copy/Paste Echos/Imaging Report here] Impression and Plan: [ chest pain Hypertension Hyperlipidemia CAD s/p CABG x3 (BURGESS-LAD, SVG-PDA, and SVG-OM1) in 10/17/[address] Ingrid Ulrich [facility]/coronary angiogram on 12/08/2017 demonstrated a patent BURGESS graft to the LAD, a completely occluded SVG to the OM1, and a patent SVG to the distal RCA, s/p PTCA/stent to the ostial OM with a 3.0 x 8 mm drug-eluting stent, a 3.0 x 12 mm stent to the mid LAD and a 3.0 x 23 mm stent to the proximal circumflex artery Lexiscan stress test on 04/18/2021 with moderate inferior ischemia of moderate size Subsequent LHC/coronary angiogram on 05/26/2021 demonstrated a patent BURGESS graft to the LAD, an occluded SVG to OM, an occluded SVG to RCA, and multiple lesions in LCx LVEF of 42% with mild septal hypokinesia via 2D Echo on 05/27/2021 History of meth and cocaine use Noncompliance # chest pain Troponin are negative x3 EKG demonstrated NSR with a hr of 77bpm, QTc 418, and TWI in the inferior leads similar to EKG on 08/25/2021 -Resume Aspirin 81m daily, Atorvastatin 40mg nightly, Metoprolol succinate 25mg daily, and Ranexa -Hold Losartan 25mg daily due to marginal blood pressure -2D Echo LV function with drop in LVEF to 35-40% Lexiscan with partial reversibility of the inferolateral wall, ordered CCTA for CABG patency-->due to motion artifact, lumina stenosis of BURGESS to LAD and [place] coronary arteries are not quantitated accurately, given drop in LVEF and angina, recommend LHC Wednesday with Dr Nur #Mild systolic heart failure ICM - LVEF 35-40%- NYHA II History of CABG Compensated and euvolemic on exam strict Is and Os with daily weights Optimize GDMT toprol 25 mg daily Nancy YORK,NANCY Hurst MD May 06, 2025 08:36
--- NOTE | 2025-05-06 15:44 | NUR ---
INFORMED CONSENT SIGNED FOR HEART CATH WITH PCI TOMORROW. ACKNOWLEDGED PROCEDURE AND WILL BE NPO AFTER MIDNIGHT
[2025-05-07] VITALS (17 sets, daily range): BP systolic 91–124; BP diastolic 49–73; PULSE 46–67; RESP 16–20; TEMP 97.6–98.5; O2SAT 95–99
[2025-05-07 05:43] LABS: NUCLEATED RED BLOOD CELLS 0.0 % (0.0-0.19); PLATELET COUNT (AUTO) 259.0 K/uL (130-400); RED BLOOD CELL COUNT(AUTO) 4.51 MIL/uL (4.50-6.20); RED CELL DISTRIBUTION WIDTH 13.2 % (11.0-15.5); WHITE BLOOD COUNT (AUTO) 6.5 K/uL (4.8-10.8)
[2025-05-07 06:04] LABS: INR 0.99 (0.85-1.15)
[2025-05-07 06:22] LABS: CREATINE KINASE, TOTAL 56.0 U/L (21-232); CREATININE 0.7 mg/dL (0.5-1.3); GLOMERULAR FILTR. RATE CALC 112.0 mL/min (>90); GLUCOSE,RANDOM 98.0 mg/dL (70-105); SODIUM SERUM 140.0 mmol/L (136-145); UREA NITROGEN, BLOOD 20.0 mg/dL (7-18)
--- NOTE | 2025-05-07 12:21 | PN ---
[facility] PROGRESS NOTE Date of Service: May 07, 2025 Time of Service: 12:16 SUBJECTIVE: [ ] Patient came to the emergency department with a chief complaint of shortness of breaths. Onset was 04/30/2025 noon. Location is to lungs. Duration is on and off. Character is described as, "like I do not get enough air. "There was no alleviating factors. Symptoms are aggravated with physical activity. Patient reports associated chest pain like tightness across both sides of his chest. Today in the emergency department CBC unremarkable, chemistry unremarkable, chest x-ray unremarkable, troponin unremarkable, no urinalysis has been collect ed or sent to lab. Emergency room physician recommended that patient be admitted with a diagnosis of chest pain. 05/02/25 patient is lying in bed patient denies chest pain. Patient waiting for echo primary nurse notify development technical lead. 05/03/25 patient is seen and examined patient had a drop in LVEF to 35-40%, counter intelligence technician's scheduled lexiscan today. No chest pain events overnight. We will continue to follow counter intelligence technician's recommendations possible discharge if no further intervention per counter intelligence technician's. Late entry: 05/04/25 The patient will have a Corn[facility] CT today given to abnormal lexiscan . the patient no episodes of chest pain. we will wait for results and further intervention per counter intelligence technician. Late entry: 05/05/25 No discharged: Back Sewer will plan LHC on Wednesday. No chest pain events over night. 05/06/25 patient is fully awake alert oriented x3. Patient denied chest pain or shortness for breath left heart catheterization is scheduled for tomorrow. 05/07/25 reports no chest pain events overnight lab work. Scheduled for left heart catheterization this morning possible discharged today if no further workup REVIEW OF SYSTEMS CONSTITUTIONAL: Denies fevers, chills, or night sweats. No unintentional weight loss reported. NEUROLOGICAL: Denies headache, amaurosis fugax, motor weakness, sensory deficit, vertigo/spinning sensation, gait abnormalities, or tremors. ENT: No hearing loss, otalgia, otorrhea, rhinitis, rhinorrhea, hoarseness, or sore throat. CARDIOVASCULAR: Denies any exertional angina, dyspnea on exertion, orthopnea, paroxysmal nocturnal dyspnea, palpitations, life-threatening arrhythmias, claudication. PULMONARY: Denies any shortness of breath, cough, phlegm/sputum, hemoptysis, pleuritic chest pain. SLEEP: Denies morning headaches, daytime somnolence or napping. Denies difficulty falling asleep, staying asleep, waking from sleep. Denies knowledge of snoring. GASTROINTESTINAL: Denies any type of dysphagia to either liquids or solids. Denies nausea, vomiting, pyrosis, early satiety, abdominal pain, diarrhea, constipation, or changes in stool consistency or caliber. Denies coffee-ground emesis, hematemesis, hematochezia, or melanotic stools. GENITOURINARY: Denies frequency, urgency, nocturia, hematuria or incontinence (Storage/Irritative symptoms.) Low urinary stream, straining to void, urinary intermittency or hesitancy, splitting of the voiding stream, terminal dribbling. ENDOCRINOLOGIC: Denies polyuria, polydipsia, polyphagia or heat/cold intolerances. HEMATOLOGIC: Denies thrombophilia/previous clots, or coagulopathy/bleeding disorders. ONCOLOGIC: Denies personal history of malignancy. DERMATOLOGIC: Denies rashes or pruritus. PSYCHIATRIC: Denies any suicidal or homicidal ideation. Denies hallucinations. PHYSICAL EXAM GENERAL APPEARANCE: The patient is awake, alert, and oriented, in no acute cardiopulmonary distress. NEUROLOGICAL: Cranial nerves II-XII grossly intact. Motor is 5/5 in bilateral upper and lower extremities proximal to distal. No sensory deficits. HEENT: Face is symmetric. Pupils are equal and reactive. Extraocular movements are intact. NECK: Supple. No JVD. No thyromegaly. No submental, submandibular, pre- /postauricular, occipital or supraclavicular lymphadenopathy. CHEST: Normal chest expansion. No Telemetry. LUNGS: Absence of any rales, rhonchi or any wheezing. CARDIOVASCULAR: Regular. S1 and S2 normal. No appreciable rubs, murmurs or gallops. ABDOMEN: Soft, nontender, and nondistended. There is no rebound, voluntary guarding, or rigidity. : Deferred. No Call. EXTREMITIES: Non-edematous and not cyanotic. No clubbing. Good capillary refill. SKIN: No skin breakdown. Vital Signs (last 8hr) Date Time Temp Pulse Resp B/P (MAP) Pulse Ox O2 Delivery O2 Flow Rate FiO2 05/07/25 11:38 98.2 56 17 91/51 98 Room Air 05/07/25 07:54 98.1 46 18 97/60 95 Room Air LABS: Laboratory: Test 05/07/25 05:34 05/06/25 07:13 Range/Units White Blood Count 6.5 4.8-10.8 K/uL Red Blood Count 4.51 4.50-6.20 MIL/uL Hemoglobin 13.6 L 14.0-18.0 g/dL Hematocrit 40.9 L 42-54 % Mean Corpuscular Volume 90.7 79-99 fL Mean Corpuscular Hemoglobin 30.2 27.0-33.0 pg Mean Corpuscular Hemoglobin Concent 33.3 32.0-36.0 g/dL Red Cell Distribution Width 13.2 11.0-15.5 % Platelet Count 259 130-400 K/uL Mean Platelet Volume 8.8 7.5-10.5 fL Nucleated Red Blood Cells 0.0 0.0-0.19 % Prothrombin Time 10.5 9.6-11.6 SEC Prothromb Time International Ratio 0.99 0.85-1.15 Activated Partial Thromboplast Time 32.4 26.3-35.5 SEC Sodium Level 140 136-145 mmol/L Potassium Level 4.1 3.5-5.1 mmol/L Chloride Level 104 101-111 mmol/L Carbon Dioxide Level 30 21-32 mmol/L Blood Urea Nitrogen 20 H 7-18 mg/dL Creatinine 0.7 0.5-1.3 mg/dL Glomerular Filtration Rate Calc 112 >90 mL/min Random Glucose 98 70-105 mg/dL Total Calcium 8.8 8.5-10.1 mg/dL Total Creatine Kinase 56 # 21-232 U/L Troponin I High Sensitivity 9.9 4-75 ng/L Immature Granulocyte % (Auto) 0.2 0-1 % Neutrophils (%) (Auto) 53.4 40.0-77.0 % Lymphocytes (%) (Auto) 35.4 21.0-51.0 % Monocytes (%) (Auto) 7.6 3.0-13.0 % Eosinophils (%) (Auto) 3.1 0.0-8.0 % Basophils (%) (Auto) 0.3 0.0-5.0 % Neutrophils # (Auto) 3.2 1.8-7.7 K/uL Lymphocytes # (Auto) 2.1 1.0-4.8 K/uL Monocytes # (Auto) 0.5 0.1-1.0 K/uL Eosinophils # (Auto) 0.19 0.00-0.70 K/uL Basophils # (Auto) 0.02 0.00-0.20 K/uL Absolute Immature Granulocyte (auto 0.01 0-1 K/uL Magnesium Level 2.10 1.80-2.40 mg/dL Total Bilirubin 0.7 0.2-1.0 mg/dL Aspartate Amino Transf (AST/SGOT) 12 10-37 U/L Alanine Aminotransferase (ALT/SGPT) 29 12-78 U/L Alkaline Phosphatase 70 50-136 U/L Total Protein 7.4 6.0-8.3 g/dL Albumin 3.7 3.5-5.0 g/dL Current Medications Medications (Trade) Dose Ordered Sig/Jonh Route PRN Reason Start Time Stop Time Status Last Admin Dose Admin Acetaminophen (TYLenol 325MG TAB) 650 mg Q6H PRN PO TEMPERATURE GREATER THAN 101.5 05/01/25 00:30 05/31/25 00:29 Aspirin (Aspirin 81mg Ec Tab) 81 mg DAILY PO 05/01/25 09:00 05/31/25 08:59 05/06/25 09:19 81 MG Atorvastatin Calcium (LIPItor 40MG) 40 mg HS PO 05/01/25 21:00 05/31/25 20:59 05/06/25 20:34 40 MG Enoxaparin Sodium (Lovenox) 40 mg DAILY SQ 05/01/25 09:00 05/31/25 08:59 05/06/25 09:18 40 MG Famotidine (Pepcid 20mg Tab) 20 mg DAILY PO 05/01/25 09:00 05/31/25 08:59 05/06/25 09:19 20 MG Hydralazine HCl (APRESOLine 20MG INJ) 10 mg Q6H PRN IV For:SBP above 160;DBP above 90 05/01/25 00:30 05/31/25 00:29 Hydrocortisone (corTRIsone 1% CREAM) 1 APPLICATION BID PRN TP RASH 05/04/25 14:00 06/03/25 13:59 05/04/25 15:41 1 APPL Lactulose (Constulose 20gm/ 30ml Udcup) 20 gm BID PRN PO CONSTIPATION 05/01/25 00:30 05/31/25 00:29 Losartan Potassium (CozAAR 25MG TAB) 25 mg DAILY PO 05/02/25 09:00 05/01/25 17:58 DC Meloxicam (Mobic 7.5mg) 15 mg DAILY PO 05/01/25 18:00 05/31/25 17:59 05/06/25 09:18 15 MG Metoprolol Succinate (TopROL XL) 25 mg DAILY PO 05/01/25 15:00 05/04/25 07:32 DC 05/03/25 08:34 25 MG Morphine Sulfate (morPHINE 4MG SYG) 2 mg Q4H PRN IVP SEVERE PAIN (7-10) 05/01/25 00:30 05/06/25 03:29 DC 05/05/25 18:14 2 MG Morphine Sulfate (morPHINE 4MG SYG) 2 mg Q4H PRN IVP SEVERE PAIN (7-10) 05/06/25 16:00 05/13/25 15:59 05/06/25 16:36 2 MG Nitroglycerin (Nitrostat) 0.4 mg AD PRN SL CHEST PAIN 04/30/25 23:30 05/01/25 00:15 DC Nitroglycerin (Nitrostat) 0.4 mg PROTOCOL PRN SL CHEST PAIN 05/01/25 00:30 05/31/25 00:29 Ondansetron HCl (zoFRAN 4MG INJ) 4 mg Q6H PRN IV NAUSEA/VOMITING 05/01/25 00:30 05/31/25 00:29 Ranolazine (Ranexa) 500 mg BID PO 05/01/25 21:00 05/31/25 20:59 05/06/25 20:34 500 MG DIAGNOSTICS / RADIOLOGY: [ ] dISCHARGED DX'S Atypical Chest pain, POA LEXISCAN suspecting musculoskeletal chest pain POA History of meth and cocaine use Noncompliance POA Hypertension Hyperlipidemia CAD] Acute on chronic systolic heart failure LVEF to 35-40%, PLAN: [ ] This is a 50-year-old with a significant medical history of CAD status post CABG x3 2008. Patient had a decrease in EF 35 to 40% patient is scheduled for a Lexiscan. Admit: medical with Tele condition: Guarded Status: Full code IVF: [facility] counter intelligence technician's Procedure: [facility] 05/07/25 continue with Aspirin 81m daily, Atorvastatin 40mg nightly, Ranexa -Hold Losartan 25mg daily due to marginal blood pressure Labs cbc, cmp, mag+ Replace electrolytes as needed as per protocol to keep potassium above 4.0 magnesium 2.0. Supportive measures: DVT ppx, GI ppx all questions answered Supervising MD: Dr. Vale C c/d ATTESTATION BY PHYSICIAN I have seen and examined the patient. I reviewed the documentation, medical decision making, and treatment plan as noted by the mid-level provider above. I agree with the findings and plan of care. RICARDO VALE MD, ELIZABETH NP May 07, 2025 12:21
[2025-05-07] MEDS ORDERED: IOHEXOL 350 MG/ML 100ML INFUS..BTL IV ONE (12:39)
[2025-05-07] MEDS ORDERED: LIDOCAINE HCL 400MG/20ML VIAL ONE (12:39)
[2025-05-07] MEDS ORDERED: HEParin-NS 1,000 UNIT/500 ML 1,000 ML IV ONE (12:40)
[2025-05-07] MEDS ORDERED: NITROGLYCERIN 50MG VIAL ONE (13:01)
[2025-05-07] MEDS ORDERED: MIDAZOLAM HCL 1 MG/ML 2ML VIAL ONE (13:02)
--- NOTE | 2025-05-07 13:39 | PRN ---
Cath Procedure Report CATH PROCEDURE REPORT CARDIAC CATHETERIZATION REPORT Date of Service: May 07, 2025 After informed consent the patient was prepped and draped in the usual fashion. He received a total of 15 mg of 2% xylocaine and 1 mg of Versed for conscious sedation and local anesthesia. A six [place] sheath was introduced into the right femoral artery using modified Seldinger technique. A Katt four left six [place] diagnostic catheter was advanced over guidewire to the aortic root. Wire was removed and catheter engaged into the [place] left main coronary artery. The left coronary system was visualized in multiple planes the catheter was removed. A Katt four right six [place] diagnostic catheter was advanced over guidewire to the aortic root. Wire was removed and catheter engaged into the [place] right coronary artery which was visualized. The catheter was then manipulated to the origin of the saphenous graft to the obtuse marginal artery which was visualized. The catheter was then manipulated to the origin of the saphenous graft to the PDA which was visualized. The catheter was then manipulated to the origin of the BURGESS graft which was visualized in multiple planes. Catheter was removed and a pigtail catheter was advanced over guidewire across the aortic valve. Wire removed and hemodynamics measured. A pullback with continuous hemodynamic monitoring was performed and catheter was removed. A sheathogram performed and six [place] Angio-Seal closure device applied. The entire procedure was well tolerated without complications. Findings: The left main coronary artery is free of obstruction. The left anterior descending artery is totally occluded proximally. There was a small ramus branch which is free of obstruction. The circumflex artery is free of obstruction and and provides collateral filling to the posterolateral branch and PDA. First obtuse marginal artery is 99% occluded and fills retrograde via collaterals from the LAD. There was a patent BURGESS graft to the LAD which fills the entire LAD and fills the diagonal artery. In addition provides collateral filling to the obtuse marginal artery and PDA and posterolateral branches. The [place] right coronary artery is totally occluded and the saphenous graft to the right coronary artery is totally occluded. There was an 80% stenosis at the origin of the posterolateral branch. As noted the posterolateral branch and PDA filled via collaterals from the circumflex artery as well as LAD. Ejection fraction by echo this admission was 35-40%. There was no evidence for aortic stenosis. Summary: Occluded vein grafts and patent BURGESS graft with extensive collateral filling of the PDA posterolateral branch and obtuse marginal artery. Medical management advised. Report dictated by SUKHJINDER Griffith MD, MD May 07, 2025 13:39
[2025-05-08 04:00] VITALS: BP 99/57; PULSE 64; RESP 16; TEMP 98.4
--- NOTE | 2025-05-08 07:19 | PN ---
[facility] Cardiology Progress Note CARDIOLOGY PROGRESS NOTE 2024 Problems: 1. Chest pain with normal troponins x3 2. CAD status post remote aortocoronary bypass graft surgery October 2008 with a L TINO graft to the LAD saphenous graft to the PDA saphenous graft to the obtuse marginal artery with documented occlusion of the saphenous vein graft to the obtuse marginal artery status post stenting of the ostial obtuse marginal artery, mid LAD and proximal circumflex artery December 2017 with documented occlusion of the vein graft to the RCA patent BURGESS graft to the LAD occluded vein graft to the obtuse marginal artery and collateral filling of the obtuse marginal artery PDA and posterolateral branches with total occlusion of the [place] RCA and left heart catheterization this admission 3. Ischemic cardiomyopathy with LV ejection fraction of 35-40% and grade 1 diastolic left ventricular dysfunction by echo this admission 4. Dyslipidemia 5. History of meth and cocaine abuse with negative tox screen on admission 6. Noncompliance The patient underwent catheterization yesterday was found to have a patent BURGESS graft to the LAD. There is subtotal occlusion of the obtuse marginal artery total occlusion of the [place] right coronary artery occlusion of the vein graft to the obtuse marginal artery and PDA with a collateral filling to the obtuse ma rginal artery posterolateral branch and PDA from the circumflex and LAD. Medical management has been advised. Currently the patient is on aspirin atorvastatin Lovenox metoprolol succinate and ranolazine. Cath site shows no hematoma. Blood pressure is running 100 systolic heart rate in the 60s. The patient can be discharged back to his retention facility if okay with the [facility] physician. He can follow up with Dr. Nancy arreguin in two weeks to reassess tolerance and efficacy of medication. SUKHJINDER MAR MD May 08, 2025 07:19
[2025-05-08] MEDS ORDERED: METO25TA3 PO (07:23)
[2025-05-08 08:00] VITALS: BP 115/67; PULSE 59; RESP 16; TEMP 97.6
--- NOTE | 2025-05-08 09:52 | DS ---
Discharge Summary Hospital Course Summary: Patient came to the emergency department with a chief complaint of shortness of breaths. Onset was 04/30/2025 noon. Location is to lungs. Duration is on and off. Character is described as, "like I do not get enough air. "There was no alleviating factors. Symptoms are aggravated with physical activity. Patient reports associated chest pain like tightness across both sides of his chest. Today in the emergency department CBC unremarkable, chemistry unremarkable, chest x-ray unremarkable, troponin unremarkable, no urinalysis has been collected or sent to lab. Emergency room physician recommended that patient be admitted with a diagnosis of chest pain. 05/02/25 patient is lying in bed patient denies chest pain. Patient waiting for echo primary nurse notify health records technology teacher. 05/03/25 patient is seen and examined patient had a drop in LVEF to 35-40%, landscape architect's scheduled lexiscan today. No chest pain events overnight. We will continue to follow landscape architect's recommendations possible discharge if no further intervention per landscape architect's. Late entry: 05/04/25 The patient will have a [place] CT today given to abnormal lexiscan . the patient no episodes of chest pain. we will wait for results and further intervention per landscape architect. Late entry: 05/05/25 No discharged: [employer]yer will plan LHC on Wednesday. No chest pain events over night. 05/06/25 patient is fully awake alert oriented x3. Patient denied chest pain or shortness for breath left heart catheterization is scheduled for tomorrow. 05/07/25 reports no chest pain events overnight lab work. Scheduled for left heart catheterization this morning possible discharged today if no further workup 05/08/25 S/P underwent catheterization yesterday was found to have a patent BURGESS graft to the LAD. There is subtotal occlusion of the obtuse marginal artery to dilma occlusion of the [place] right coronary artery occlusion of the vein graft to the obtuse marginal artery and PDA with a collateral filling to the obtuse marginal artery posterolateral branch and PDA from the circumflex and LAD. Medical management has been advised. Cath site shows no hematoma. The patient has been cleared by landscape architect: follow up Dr Aundrea Velasquez two wks. will continue with medications as recommendation: Currently the patient is on aspirin atorvastatin metoprolol succinate and ranolazine. Procedure(s): Cath Procedure Report CATH PROCEDURE REPORT CARDIAC CATHETERIZATION REPORT Date of Service: May 07, 2025 After informed consent the patient was prepped and draped in the usual fashion. He received a total of 15 mg of 2% xylocaine and 1 mg of Versed for conscious sedation and local anesthesia. A six [place] sheath was introduced into the right femoral artery using modified Seldinger technique. A Katt four left six [place] diagnostic catheter was advanced over guidewire to the aortic root. Wire was removed and catheter engaged into the [place] left main coronary artery. The left coronary system was visualized in multiple planes the catheter was removed. A Katt four right six [place] diagnostic catheter was advanced over guidewire to the aortic root. Wire was removed and catheter engaged into the [place] right coronary artery which was visualized. The catheter was then manipulated to the origin of the saphenous graft to the obtuse marginal artery which was visualized. The catheter was then manipulated to the origin of the saphenous graft to the PDA which was visualized. The catheter was then manipulated to the origin of the BURGESS graft which was visualized in multiple planes. Catheter was removed and a pigtail catheter was advanced over guidewire across the aortic valve. Wire removed and hemodynamics measured. A pullback with continuous hemodynamic monitoring was performed and catheter was removed. A sheathogram performed and six [place] Angio-Seal closure device applied. The entire procedure was well tolerated without complications. Findings: The left main coronary artery is free of obstruction. The left anterior descending artery is totally occluded proximally. There was a small ramus branch which is free of obstruction. The circumflex artery is free of obstruction and and provides collateral filling to the posterolateral branch and PDA. First obtuse marginal artery is 99% occluded and fills retrograde via collaterals from the LAD. There was a patent BURGESS graft to the LAD which fills the entire LAD and fills the diagonal artery. In addition provides collateral filling to the obtuse marginal artery and PDA and posterolateral branches. The [place] right coronary artery is totally occluded and the saphenous graft to the right coronary artery is totally occluded. There was an 80% stenosis at the origin of the posterolateral branch. As noted the posterolateral branch and PDA filled via collaterals from the circumflex artery as well as LAD. Ejection fraction by echo this admission was 35-40%. There was no evidence for aortic stenosis. Summary: Occluded vein grafts and patent BURGESS graft with extensive collateral filling of the PDA posterolateral branch and obtuse marginal artery. Medical management advised. Report dictated by Allan MAR,ALLAN Loya MD May 07, 2025 13:39 LEFT HEART CATH" patent BURGESS graft to the LAD. There is subtotal occlusion of the obtuse marginal artery total occlusion of the [place] right coronary artery occlusion of the vein graft to the obtuse marginal artery and PDA with a collateral filling to the obtuse marginal artery posterolateral branch and PDA from the circumflex and LAD. Medical management has been advised. Assessment/Plan: dISCHARGED DX'S Atypical Chest pain, POA LEXISCAN suspecting musculoskeletal chest pain POA ruled out History of meth and cocaine use Noncompliance POA Hypertension Hyperlipidemia CAD] Acute on chronic systolic heart failure LVEF to 35-40%, PLAN: [ ] ADMISSION DATE: 04/30/25 DISCHARGE DATE: 05/08/25 DISPOSITION: retention Center CONDITION: stable KNIFE EDGER(S): landscape architect FOLLOW UP APPOINTMENT(S): DR Aundrea Velasquez two wks PROCEDURES: Lexiscan, Left heart cath summary attach IMAGING (S) report attached to summary : echo, suzyiscan, Coronary CT angio MICROBIOLOGY: report attached to summary; ACTIVITY: ab rose HOME MEDICATIONS reviewed CHANGES ON HOME MEDICATIONS discontinue losartan, metoprolol change to succ. NEW MEDICATIONS see below TEACHING: compliance with medical management: cardiac medications as directed by landscape architect. Counseling provided on Illicit drug use Emergency instructions: The patient was instructed to present to the nearest Emergency Department or call 911 should their symptoms return or worsen. Discharge Instructions: REASON: heart failure ORDERING PHYSICIAN: AVERY VELASQUEZ MD PROCEDURE: CARD DHAVAL - NM LEXISCAN CARDIOLITE APPROVED REPORT Height: 5 ft 9in Weight: 173 lbs TEST INDICATIONS HEART FAILURE The imaging protocol used to acquire images was Rest Tc-99m/stress Tc-99m 1 day Consent: The procedure was explained and understood by the patient. Informerd consent was witnessed by Ellen Ulrich RN First, low dose rest was performed then high dose stress. RESTING DATA: The resting ekg shows: NSR Rest SPECT myocardial perfusion imaging was performed in supine position minutes following the intravenous injection of 10 mCi of Tc-99 Sestamibi. Time of rest injection: 07:45: Date: 05/03/2025 PHARMACOLOGIC STRESS: Pharmacologic stress test was performed by injecting regadenoson 0.4 mg IV push followed by the intravenous injection of 28 mCi of Tc-99 Sestamibi. Time of stress injection: 09:27: Date: 05/03/2025 Heart Rate at time of stress injection: 57 bpm. Gated Stress SPECT was performed 60 minutes after stress injection. The images were gated to evaluate regional wall motion and calculate left ventricular ejection fraction. STRESS DETAILS Reason for Termination: Infusion complete Stress Symptoms: Dyspnea Max HR Achieved: 93 bpm % of APMHR Achieved: 65 Max Blood Pressure: 100/66 mmHg Stress ECG: NSR Study quality was good. Lung uptake was Normal. Artifact: No artifact IMPRESSION Abnormal pharmacologic nuclear stress test. Conclusion Medium sized partially reversible defect in the inferolateral wall. TID 1.01. LVEF 46%. REASON: CHRONIC SYSTOLIC HEART FAILURE ORDERING PHYSICIAN: STEVEN TOMLINSON PROCEDURE: ECHO [facility] - ECHO 2-D COMPLETE APPROVED REPORT EXAM: Three dimensional/Two-dimensional and M-mode echocardiogram with Doppler and color Doppler. INDICATION ICD: I50.20 Chronic systolic heart failure 2D Dimensions RVDd 4.0 cm LVEF(%) 55.9 (>50%) LVED Vol(simp.) 160.0 mL IVSd 1.2 (0.7-1.1cm) FS(%) 30 % LVES Vol(simp.) 98.0 mL LVDd 5.9 (3.8-5.6cm) LA (2D) 3.8 (1.6-4.0cm) LVEF(%, simp.) 39 % PWd 1.0 (0.7-1.1cm) Ao Root(2D) 3.3 (2.0-3.7cm) LA ESV INDEX (BP) 22.32 mL/m2 IVSs 1.4 cm LVOT diam 2.3 (1.8-2.4cm) LVDs 4.2 (2.5-4.0cm) IVC diam 1.0 cm PWs 1.8 cm Deformation Strain Apical 4 -11.6 % Apical 2 -11.5 % Apical 3 -13.0 % Global Strain -12.0 % M-Mode Dimensions EPSS 1.4 cm LA (MM) 3.9 (1.6-4.0cm) Ao Root(MM) 3.3 (2.0-3.7cm) Aortic Valve AoV Vmax 1.0 m/s Ao Peak GR 4.2 mmHg LVOT Vmax 0.9 m/s AoV VTI 0.2 m Ao Mean GR 2.5 mmHg LVOT VTI 0.16 m MARÍA (VMAX) 3.41 cm2 MARÍA (VTI) 3.3 cm2 Mitral Valve MV E Vmax 43.0 cm/s DECEL Time 193 ms MV A Vmax 40.1 cm/s P 1/2 T 136 ms E/A ratio 1.1 MVA (PHT) 1.6 cm2 TDI E/E' Medial 6.4 E/E' Lateral 4.4 Medial E' Peak V 6.76 cm/s Lateral E' Peak V 9.88 cm/s Pulmonary Valve PV Vmax 0.9 m/s PV VTI 0.16 m PV Mean GR 1.7 mmHg PV Peak GR 3.2 mmHg Tricuspid Valve RAP (EST) 3 mmHg RVSP 3.0 mmHg Left Ventricle The left ventricle is normal size. GLS -12.0% There is normal left ventricular wall thickness. LVEF is 35-40%. 3D volume EF 39% Stage I diastolic dysfunction. Right Ventricle The right ventricle is normal size. Right ventricular systolic function is mildly to moderately reduced. Atria The left atrium size is normal. The right atrium size is normal. Aortic Valve Aortic valve is trileaflet and opens well. No aortic regurgitation is present. There is no aortic valvular stenosis. Mitral Valve The mitral valve is normal in structure. There is trace of mitral valve regurgitation noted. There is no mitral valve stenosis. Tricuspid Valve The tricuspid valve is normal in structure. There is no tricuspid valve regurgitation noted. Pulmonic Valve The pulmonary valve is normal in structure. There is no pulmonic valvular regurgitation. Great Vessels The aortic root is normal in size. The IVC is normal in size and collapses >50% with inspiration. Pericardium There is no pericardial effusion. Other Information Quality : Adequate Conclusion The left ventricle is normal size. LVEF is 35-40%. 3D volume EF 39% Stage I diastolic dysfunction. The right ventricle is normal size. Right ventricular systolic function is mildly to moderately reduced. No valvular pathology There is no pericardial effusion. Home Medications: Reported Medications Losartan Potassium (Losartan Potassium) 25 Mg Tablet, 1 TAB PO DAILY for 30 Days, #30 TAB 0 Refills 05/01/25 Rosuvastatin Calcium (Rosuvastatin Calcium) 40 Mg Tablet, 1 TAB PO DAILY for high cholesterol for 30 Days, #30 TAB 0 Refills 05/01/25 Ranolazine (Ranolazine ER) 500 Mg Tab.er.12h, 1 TAB PO BID for 30 Days, #60 TAB 0 Refills 05/01/25 Valacyclovir HCl (Valacyclovir) 1,000 Mg Tablet, 1 TAB PO TID for 7 Days, #21 TAB 0 Refills 05/01/25 Clopidogrel Bisulfate (Plavix) 75 Mg Tablet, 75 MG PO DAILY, TAB 12/09/17 Metoprolol Tartrate (Metoprolol Tartrate) 25 Mg Tablet, 25 MG PO DAILY, TAB 12/09/17 Aspirin (ASPIRIN 81 MG ECTAB) 81 Mg Ectab, 81 MG PO DAILY, TAB.EC 12/09/17 Discontinued Reported Medications Atorvastatin Calcium (LIPITOR) 20 Mg Tab, 20 MG PO HS, TAB 12/09/17 Discontinued Scripts [Nitroglycerin 0.4MG Sl Tab] 0.4 MG TAB.SUBL No Conflict Check, 0.4 MG SL q5min prn PRN for CHEST PAIN, #15 0 Refills Prov:TONNY DAVID MD 12/09/17 Metoprolol Tartrate (Lopressor) 25 Mg Tab, 25 MG PO BID, #60 TAB Prov:TONNY DAVID MD 12/09/17 Clopidogrel Bisulfate (Plavix) 75 Mg Tablet, 75 MG PO DAILY, #60 TAB Prov:TONNY DAVID MD 12/09/17 Atorvastatin Calcium (Atorvastatin Calcium) 20 Mg Tablet, 20 MG PO HS, #60 TAB Prov:TONNY DAVID MD 12/09/17 Aspirin (ASPIRIN 81MG CHEW TAB) 81 Mg Tab.chew, 81 MG PO DAILY, #60 TAB.CHEW Prov:TONNY DAVID MD 12/09/17 New Medications: Metoprolol Succinate (Toprol Xl) 25 Mg Tab.er.24h 25 MG PO DAILY, #30 TAB 3 Refills Continued Medications: Aspirin (Aspirin 81 Mg Ectab) 81 Mg Ectab 81 MG PO DAILY, TAB.EC Clopidogrel Bisulfate (Plavix) 75 Mg Tablet 75 MG PO DAILY, TAB Ranolazine (Ranolazine ER) 500 Mg Tab.er.12h 1 TAB PO BID for 30 Days, #60 TAB 0 Refills Rosuvastatin Calcium (Rosuvastatin Calcium) 40 Mg Tablet 1 TAB PO DAILY for high cholesterol for 30 Days, #30 TAB 0 Refills Valacyclovir HCl (Valacyclovir) 1,000 Mg Tablet 1 TAB PO TID for 7 Days, #21 TAB 0 Refills Discontinued Medications: Losartan Potassium (Losartan Potassium) 25 Mg Tablet 1 TAB PO DAILY for 30 Days, #30 TAB 0 Refills Metoprolol Tartrate (Metoprolol Tartrate) 25 Mg Tablet 25 MG PO DAILY, TAB Time spent arranging discharge: 31-60 minutes ATTESTATION BY PHYSICIAN I have seen and examined the patient. I reviewed the documentation, medical decision making, and treatment plan as noted by the mid-level provider above. I agree with the findings and plan of care. RICARDO VALE MD, ELIZABETH NP May 08, 2025 09:52
[2025-05-08 12:00] VITALS: BP 93/58; PULSE 54; RESP 15; TEMP 97.8
== END 2025-05-08 15:00 | DRG 286 ==
LOC: EDH 20:27 → EEVIPCON 20:27 → EDHIP 05-01 00:05 → 3CH 05-01 20:38
PROVIDERS: ADMIT Internal Medicine; ATTEND Internal Medicine
PROC: 4A02XM4 Measurement of Cardiac Total Activity, External Approach (ICD-10-PCS; 2025-05-03)
PROC: 3E073KZ Introduction of Other Diagnostic Substance into Coronary Artery, Percutaneous Approach (ICD-10-PCS; 2025-05-03)
PROC: 4A023N7 Measurement of Cardiac Sampling and Pressure, Left Heart, Percutaneous Approach (ICD-10-PCS; principal; 2025-05-07)
PROC: B2111ZZ Fluoroscopy of Multiple Coronary Arteries using Low Osmolar Contrast (ICD-10-PCS; 2025-05-07)
PROC: B2131ZZ Fluoroscopy of Multiple Coronary Artery Bypass Grafts using Low Osmolar Contrast (ICD-10-PCS; 2025-05-07)
PROC: B2181ZZ Fluoroscopy of Left Internal Mammary Bypass Graft using Low Osmolar Contrast (ICD-10-PCS; 2025-05-07)
DX: I11.0 Hypertensive heart disease with heart failure (principal); I50.23 Acute on chronic systolic (congestive) heart failure; I25.10 Atherosclerotic heart disease of native coronary artery without angina pectoris; E78.5 Hyperlipidemia, unspecified; Z95.5 Presence of coronary angioplasty implant and graft; I10 Essential (primary) hypertension; E11.9 Type 2 diabetes mellitus without complications; I25.5 Ischemic cardiomyopathy; I25.82 Chronic total occlusion of coronary artery; Z79.02 Long term (current) use of antithrombotics/antiplatelets; Z79.82 Long term (current) use of aspirin; Z79.899 Other long term (current) drug therapy; Z91.199 Patient's noncompliance with other medical treatment and regimen due to unspecified reason
CPT/HCPCS: 36415; 71045; 75574; 76376; 78452; 80048; 80053; 80305; 81003; 82550; 83735; 83880; 84100; 84484; 85025; 85027; 85378; 85610; 85730; 93005; 93017; 93306; 93356; 93459; 99156; 99285; A9500; C1760; C1894; G0378; J1644; J1650; J2250; J2270; J2785; J3010; J3490; Q9967; Q9965